=== PATIENT | male | born 1950 | race Caucasian/White ===

== ENCOUNTER 2018-07-14 05:52 | Day surgery (SDC) | payer MEDICARE ==
[~2018-07-14 05:52] MED LIST: XYLOCAINE 2% HCL 20 ML MDV ONE
[2018-07-14] MEDS ORDERED: DIPRIVAN 200 MG/20 ML IV ONE (05:53)
[2018-07-14] MEDS ORDERED: Lactated Ringers 1,000 ML IV SCH (06:00)
[2018-07-14] MEDS ORDERED: Lactated Ringers 1,000 ML IV ONE (06:18)
[2018-07-14 09:12] VITALS: BP 136/87; PULSE 69; O2SAT 99
--- NOTE | 2018-07-14 11:13 | OP ---
SURGERY DATE/TIME: 07/14/2018808 PREOPERATIVE DIAGNOSIS: Screening colonoscopy. POSTOPERATIVE DIAGNOSIS: Normal colon. PROCEDURE: Colonoscopy. SURGEON: Asa Garcia M.D. ANESTHESIA: MAC by Popeye Mullins CRNA. ESTIMATED BLOOD LOSS: None. SPECIMENS: None. DESCRIPTION OF PROCEDURE: After informed written consent was obtained, the patient was taken to the endoscopy suite. He underwent monitored anesthesia and digital rectal exam showed normal sphincter tone and no internal lesions. The scope was inserted into the rectum and sequentially the entire colonic mucosa was traversed. The level of cecum was reached and verified with direct visualization of the ileocecal valve. Upon withdrawal careful mucosal inspection revealed no gross abnormalities. Prep was noted to be fair. Prior to withdrawal retroflexion was performed and showed no internal lesions. The scope was removed and the patient was transferred to the recovery room in good condition.
== END 2018-07-14 09:24 | disposition home or self-care (01) ==
LOC: SDC 05:52
PROVIDERS: ATTEND Family Medicine
DX: Z12.11 Encounter for screening for malignant neoplasm of colon (principal)
CPT/HCPCS: J2704

== ENCOUNTER 2020-02-15 20:33 | Emergency (ER) | payer MEDICARE ==
--- NOTE | 2020-02-15 21:22 | ERPHSYRPT ---
- History of Present Illness Time Seen by Provider: 02/15/20 21:07 Source: patient Exam Limitations: no limitations Physician History: 69 years old male presented in the ER with a chief complaint of fall while getting up from a chair and is kitchen and hit his left forearm against the wall sharp edges getting laceration. There was bleeding initially but stopped after applying pressure. Patient is taking only Plavix but no other blood thinners. Pain with movements at rest and palpation around. Better with being still. Unsure about tetanus status. Not hit his head, no loss of consciousness. Also has mild bruise on the left knee where he hit the ground. Did not have injury anywhere else. Occurred: just prior to arrival Method of Injury: fell Severity of Pain-Max: mild Severity of Pain-Current: mild Extremities Pain Location: forearm: left (Laceration dorsal aspect) Modifying Factors: Improves With: movement Associated Symptoms: none Allergies/Adverse Reactions: No Known Drug Allergies Allergy (Verified 07/14/18 06:04) Home Medications: Atorvastatin Calcium [Lipitor] 40 mg PO QHS 07/11/18 [History] Bacillus Coagulans [Probiotic] 1 each PO DAILY 07/11/18 [History] Clopidogrel Bisulfate 75 mg [PLAVIX 75 MG Tablet] 75 mg PO DAILY 07/11/18 [History] Furosemide 20 mg [Lasix 20 mg] 20 mg PO DAILY 07/11/18 [History] Levetiracetam [Keppra] 750 mg PO BID 07/11/18 [History] Metoprolol Succinate [Toprol Xl] 50 mg PO BID 07/11/18 [History] Potassium Chloride [K-Dur] 10 meq PO DAILY 07/11/18 [History] Pyridoxine HCl (Vitamin B6) [B-6] 100 mg PO DAILY 07/11/18 [History] Travel Risk - International Travel Have you traveled outside of the country in past 3 weeks: No Have you or anyone close to you been diagnosed with or: No Do your reside in a community with a known COVID-19 case?: Yes If Yes where:: [facility] - Review of Systems Constitutional: No Symptoms Eyes: No Symptoms Ears, Nose, & Throat: No Symptoms Respiratory: No Symptoms Cardiac: No Symptoms Abdominal/Gastrointestinal: No Symptoms Genitourinary Symptoms: No Symptoms Musculoskeletal: Fall, Injury, Joint Pain Skin: Skin Lesions Neurological: No Symptoms Psychological: No Symptoms Endocrine: No Symptoms Hematologic/Lymphatic: No Symptoms Immunological/Allergic: No Symptoms - Past Medical History Pertinent Past Medical History: Yes Neurological History: Seizures ENT History: No Pertinent History Cardiac History: Coronary Artery Disease, High Cholesterol, Hypertension Respiratory History: No Pertinent History Endocrine Medical History: No Pertinent History Musculoskeletal History: No Pertinent History GI Medical History: No Pertinent History History: Other Psycho-Social History: No Pertinent History Male Reproductive Disorders: No Pertinent History Other Medical History: Hx of kidney problems, states last sz was "one to two yrs ago" - Past Surgical History Past Surgical History: Yes Neuro Surgical History: No Pertinent History Cardiac: Cardiac Catheterization Respiratory: No Pertinent History Gastrointestinal: No Pertinent History Genitourinary: No Pertinent History Musculoskeletal: No Pertinent History Male Surgical History: No Pertinent History Other Surgical History: Colonoscopy - Social History Smoking Status: Current every day smoker How long have you smoked: 50 years Exposure to second hand smoke: Yes Drug Use: none - Nursing Vital Signs Nursing Vital Signs: Initial Vital Signs Temperature 97.4 F 02/15/20 21:00 Pulse Rate 56 L 02/15/20 21:00 Respiratory Rate 18 02/15/20 21:00 Blood Pressure 116/66 02/15/20 21:00 O2 Sat by Pulse Oximetry 99 02/15/20 21:00 Pain Scale Pain Intensity 0 - Physical Exam General Appearance: no apparent distress, alert Eyes, Ears, Nose, Throat Exam: normal ENT inspection, TMs normal, pharynx normal Neck Exam: normal inspection, non-tender, supple, full range of motion Cardiovascular/Respiratory Exam: chest non-tender, normal breath sounds, regular rate/rhythm Abdominal Exam: non-tender, soft Back Exam: normal inspection Shoulder Exam: normal inspection, non-tender, no evidence of injury Elbow/Forearm Exam: normal ROM, pain, soft tissue tenderness, swelling (Jagged edges laceration left forearm dorsal aspect deep to fascia. Measured 9 cm x 3 cm T-shaped. No restricted movements at wrist and fingers.), No bone tenderness Hand Exam: normal inspection, non-tender, no evidence of injury Neuro/Tendon Exam: normal sensation, normal motor functions, normal tendon functions Mental Status Exam: alert, oriented x 3, cooperative Skin Exam: normal color, warm SpO2 Interpretation: normal SpO2: 99 O2 Delivery: Room Air Procedures - Laceration/Wound Repair Left Upper Dorsal Arm Wound Location: Left, lower arm Wound Length (cm): 9 Wound's Depth, Shape: irregular, flap Wound Explored: clean Irrigated: Yes Hibiclens Prep: Yes Anesthesia: 1% Lidocaine Volume Anesthetic (ccs): 7 Wound Debrided: minimal Wound Repaired With: sutures Suture Size/Type: 3-0, ethilon Number of Sutures: 11 Layer Closure?: Yes Sterile Dressing Applied?: Yes Splint Applied?: Yes Type of Splint Applied: posterior Ortho-Glass applied for stability Sling Applied?: Yes - Course Nursing assessment & vital signs reviewed: Yes Ordered Tests: Active Orders 24 hr Category Date Time Status Isolation, Initiate & Maintain Q4H Care 02/15/20 21:34 Active KNEE (3 VIEWS) Stat Exams 02/15/20 22:03 Taken Medication Summary Discontinued Medications Generic Name Dose Route Start Last Admin Trade Name Freq PRN Reason Stop Dose Admin Cephalexin HCl 500 mg 02/15/20 22:19 02/15/20 22:30 Keflex 500 Mg PO 02/15/20 22:20 500 mg STAT ONE Administration Cephalexin HCl Confirm 02/15/20 22:28 Keflex 500 Mg Administered 02/15/20 22:29 Dose 500 mg .ROUTE .STK-MED ONE Diphtheria/Tetanus/Acell Pertussis 0.5 ml 02/15/20 21:23 02/15/20 21:43 Adacel Vial IM 02/15/20 21:24 0.5 ml .ONCE ONE Administration Diphtheria/Tetanus/Acell Pertussis Confirm 02/15/20 21:42 Adacel Vial Administered 02/15/20 21:43 Dose 0.5 ml IM .STK-MED ONE - Progress Progress: improved, pain not gone completely, re-examined Progress Note: 02/15/20 22:20 Laceration is repaired. Patient is on Plavix and also has a thin skin with multiple bruising. Discussed with patient in detail about risk of cut through open wound and wound care follow-up is provided. I would also start him on Keflex. Recommended Tylenol take as needed. Posterior splint is applied to keep it stabilized. X-rays knee did not show any acute fracture. Patient has no loss of consciousness and remembers the whole sequence of event. Do not think needs any further work-up and is stable for discharge. Counseled pt/family regarding: diagnosis, need for follow-up, rad results - Departure Departure Disposition: Home Clinical Impression: Laceration of left forearm Qualifiers: Encounter type: initial encounter Qualified Code(s): S51.812A - Laceration without foreign body of left forearm, initial encounter Condition: Stable Critical Care Time: No Referrals: LAUREEN FRIEDMAN [Primary Care Provider] - Instructions: Wound Care (DC), Laceration Repair With Stitches (DC) Additional Instructions: Follow-up with primary care and wound care clinic for reevaluation. Take Tylenol as needed. Continue with antibiotics. Return to ER for increasing swelling redness discharge fever chills etc. Prescriptions: Cephalexin Mh 500 mg [Keflex 500 mg] 500 mg PO TID #21 capsule
[2020-02-15] MEDS ORDERED: Adacel Vial IM ONE ×2 (21:23→21:42)
[2020-02-15] MEDS ORDERED: KEFLEX 500 MG PO ONE (22:19)
[2020-02-15 22:25] VITALS: O2SAT 99
[2020-02-15] MEDS ORDERED: KEFLEX 500 MG ONE (22:28)
[2020-02-15 23:00] VITALS: BP 118/74; PULSE 60
--- NOTE | 2020-02-16 08:49 | XRAY ---
Indication: Pain following fall. Comparison: None 3 view left knee demonstrates anterior soft tissue swelling, minimal medial joint space narrowing, scattered vascular calcifications, and partially visualized distal superficial femoral artery stent graft. No other bony, articular, or soft tissue abnormalities.
== END 2020-02-15 23:00 | disposition home or self-care (01) ==
LOC: ED 20:33
DX: S51.812A Laceration without foreign body of left forearm, initial encounter (principal); S80.02XA Contusion of left knee, initial encounter; W22.01XA Walked into wall, initial encounter; Y93.89 Activity, other specified; Y92.000 Kitchen of unspecified non-institutional (private) residence as the place of occurrence of the external cause; I10 Essential (primary) hypertension; E78.00 Pure hypercholesterolemia, unspecified; I25.10 Atherosclerotic heart disease of native coronary artery without angina pectoris; Z79.899 Other long term (current) drug therapy
CPT/HCPCS: 12002; 73562; 90471; 90715; 99284; A4570; A9270-GY

== ENCOUNTER 2020-03-20 12:16 | Observation (INO) | payer MEDICARE ==
[2020-03-20] MEDS ORDERED: Zofran 4 MG/2 ML VIAL IV ONE (12:21)
--- NOTE | 2020-03-20 12:21 | ERPHSYRPT ---
- History of Present Illness Time Seen by Provider: 03/20/20 12:21 Source: patient, family Exam Limitations: clinical condition Physician History: This is a 69-year-old white male who has chronic alcohol problems and presents with decreased appetite, frequent falls and worsening confusion. The patient states that his last alcoholic drink was approximately 1 week ago. His daughter states that it is been at least 5 days. Patient's primary care provider is Darshana Hawkins who is a nurse practitioner. Dr. Bentley, Darshana Hawkins overseeing physician, called the emergency department today. Darshana Hawkins nurse practitioner interviewed Estuardo Zamora on 03/19/2020. Are made for the patient to be admitted here but there are no beds available. Attempt was made to transfer or admit the patient to [facility]. However, they were unable to admit him there because of some social reasons involving the patient's son who at times becomes angry and agitated. In the last year the patient underwent an upper endoscopy and a colonoscopy. This was performed by Dr. Devlin at [facility]. 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 Patient is on Plavix. Patient is on some antiseizure medications which the seizures were induced by chronic alcohol use. Patient denies nausea vomiting and diarrhea. Patient currently denies chest pain or abdominal pain. Patient's daughter, who is the power of compliance attorney, states that the patient can not care for himself any longer. He is unable to even walk a few steps without falling. Patient's rotary drier operator is Dr. MADDEN of [facility]. Timing/Duration: gradual onset, other (Fronek recurrent falls.) Severity: moderate Associated Symptoms: loss of appetite, syncope, weakness Allergies/Adverse Reactions: No Known Drug Allergies Allergy (Verified 07/14/18 06:04) Home Medications: Atorvastatin Calcium [Lipitor] 40 mg PO QHS 07/11/18 [History] Bacillus Coagulans [Probiotic] 1 each PO DAILY 07/11/18 [History] Clopidogrel Bisulfate 75 mg [PLAVIX 75 MG Tablet] 75 mg PO DAILY 07/11/18 [History] Furosemide 20 mg [Lasix 20 mg] 20 mg PO DAILY 07/11/18 [History] Levetiracetam [Keppra] 750 mg PO BID 07/11/18 [History] Metoprolol Succinate [Toprol Xl] 50 mg PO BID 07/11/18 [History] Potassium Chloride [K-Dur] 10 meq PO DAILY 07/11/18 [History] Pyridoxine HCl (Vitamin B6) [B-6] 100 mg PO DAILY 07/11/18 [History] Hx Tetanus, Diphtheria Vaccination/Date Given: No Hx Influenza Vaccination/Date Given: Yes Hx Pneumococcal Vaccination/Date Given: No Travel Risk - International Travel Have you traveled outside of the country in past 3 weeks: No Have you or anyone close to you been diagnosed with or: No Do your reside in a community with a known COVID-19 case?: Yes If Yes where:: [facility] - Coronavirus Screening Has patient experienced Coronavirus symptoms: No - Review of Systems Constitutional: Weakness Eyes: No Symptoms Ears, Nose, & Throat: No Symptoms Respiratory: No Symptoms Cardiac: No Symptoms Abdominal/Gastrointestinal: No Symptoms Genitourinary Symptoms: No Symptoms Musculoskeletal: Fall (Requip) Skin: Other (And relies ecchymosis) Neurological: Other (Fusion weakness and inability to ambulate normally frequent falls) Psychological: Alcohol Abuse Endocrine: No Symptoms Hematologic/Lymphatic: No Symptoms Immunological/Allergic: No Symptoms All Other Systems: Reviewed and Negative - Past Medical History Pertinent Past Medical History: Yes Neurological History: Seizures ENT History: No Pertinent History Cardiac History: Coronary Artery Disease, High Cholesterol, Hypertension Respiratory History: No Pertinent History Endocrine Medical History: No Pertinent History Musculoskeletal History: No Pertinent History GI Medical History: No Pertinent History History: Other Psycho-Social History: No Pertinent History Male Reproductive Disorders: No Pertinent History Other Medical History: Hx of kidney problems, states last sz was "one to two yrs ago" - Past Surgical History Past Surgical History: Yes Neuro Surgical History: No Pertinent History Cardiac: Cardiac Catheterization Respiratory: No Pertinent History Gastrointestinal: No Pertinent History Genitourinary: No Pertinent History Musculoskeletal: No Pertinent History Male Surgical History: No Pertinent History Other Surgical History: Colonoscopy - Social History Smoking Status: Current every day smoker How long have you smoked: 50 years Exposure to second hand smoke: Yes Drug Use: none Patient Lives Alone: Yes - Nursing Vital Signs Nursing Vital Signs: Initial Vital Signs Temperature 99.2 F 03/20/20 12:28 Pulse Rate 65 03/20/20 12:28 Respiratory Rate 24 03/20/20 12:28 Blood Pressure 91/59 03/20/20 12:28 O2 Sat by Pulse Oximetry 99 03/20/20 12:28 Pain Scale Pain Intensity 6 - Physical Exam General Appearance: no apparent distress, alert Eye Exam: PERRL/EOMI, eyes nml inspection Ears, Nose, Throat Exam: normal ENT inspection, moist mucous membranes Neck Exam: normal inspection, non-tender, supple, full range of motion Respiratory Exam: normal breath sounds, airway intact, wheezing (Mild left lower lung field), No chest tenderness, No respiratory distress Cardiovascular Exam: regular rate/rhythm, normal heart sounds, normal peripheral pulses Gastrointestinal/Abdomen Exam: soft, normal bowel sounds, No tenderness Rectal Exam: not done Back Exam: normal inspection, normal range of motion, CVA tenderness Extremity Exam: normal range of motion, pelvis stable, pedal edema Neurologic Exam: alert, cooperative, ship mate II-XII nml as tested Skin Exam: ecchymosis (Several areas of ecchymosis on his body. This includes the anterior and posterior torso, upper and lower extremities. There are several eschars where there is been skin tears and healing on present.) Lymphatic Exam: No adenopathy SpO2 Interpretation: normal O2 Delivery: Room Air - Course Nursing assessment & vital signs reviewed: Yes EKG Interpreted by Me: RATE (66), Sinus Rhythm, NORMAL AXIS, NORMAL INTERVALS, NORMAL QRS, Other (Comparison EKG. No acute ischemic changes noted) Ordered Tests: Active Orders 24 hr Category Date Time Status Clean Catch Urine Specimen STAT Care 03/20/20 12:21 Active EKG-ER Only STAT Care 03/20/20 12:21 Active IV Insertion STAT Care 03/20/20 12:21 Active Pulse Oximetry (ED) STAT Care 03/20/20 12:21 Active CHEST 1 VIEW (PORTABLE) Stat Exams 03/20/20 12:30 Completed HEAD WITHOUT CONTRAST [CT] Stat Exams 03/20/20 12:47 Completed AMYLASE Stat Lab 03/20/20 13:08 Completed CBC W DIFF Stat Lab 03/20/20 13:08 Completed CMP Stat Lab 03/20/20 13:08 Completed ETHYL ALCOHOL Stat Lab 03/20/20 13:08 Completed LIPASE Stat Lab 03/20/20 13:08 Completed Lactic Acid Stat Lab 03/20/20 13:00 Completed MAGNESIUM Stat Lab 03/20/20 13:08 Completed PROTIME WITH INR Stat Lab 03/20/20 13:08 Completed TROPONIN Q3H Lab 03/20/20 13:08 Completed TROPONIN Q3H Lab 03/20/20 15:30 Ordered TROPONIN Q3H Lab 03/20/20 18:30 Ordered TROPONIN Q3H Lab 03/20/20 21:30 Ordered TROPONIN Q3H Lab 03/21/20 00:30 Ordered UA W/RFX UR CULTURE Stat Lab 03/20/20 14:41 Ordered Urine Triage Profile Stat Lab 03/20/20 14:41 Ordered Medication Summary Generic Name Dose Route Start Last Admin Trade Name Freq PRN Reason Stop Dose Admin Thiamine HCl 100 mg/ 1,011.2 mls @ 250 mls/hr 03/20/20 12:45 03/20/20 14:29 Multivitamins/Minerals 10 ml/ IV 03/20/20 16:44 250 mls/hr Folic Acid 1 mg/ Sodium .Q4H3M LIT Administration Chloride Discontinued Medications Generic Name Dose Route Start Last Admin Trade Name Freq PRN Reason Stop Dose Admin Famotidine 20 mg 03/20/20 12:23 03/20/20 14:29 Pepcid 20 Mg Vial IV 03/20/20 12:24 20 mg STAT ONE Administration Famotidine Confirm 03/20/20 14:27 Pepcid 20 Mg Vial Administered 03/20/20 14:28 Dose 20 mg IV .STK-MED ONE Ondansetron HCl 4 mg 03/20/20 12:21 03/20/20 14:29 Zofran 4 Mg/2 Ml Vial IV 03/20/20 12:22 4 mg STAT ONE Administration Ondansetron HCl Confirm 03/20/20 14:27 Zofran 4 Mg/2 Ml Vial Administered 03/20/20 14:28 Dose 4 mg .ROUTE .STK-MED ONE Lab/Rad Data: Laboratory Result Diagrams 03/20/20 13:08 03/20/20 13:08 Laboratory Results 03/20/20 03/20/20 03/20/20 Range/Units 13:08 13:08 13:08 WBC (4.0-10.5) K/mm3 RBC (4.1-5.6) M/mm3 Hgb (12.5-18.0) gm/dl Hct (42-50) % MCV (78-100) fl MCH (26-32) pg MCHC (32-36) g/dl RDW (11.5-14.0) % Plt Count (150-450) K/mm3 MPV (7.5-11.0) fl Gran % (36.0-66.0) % Eos # (Auto) (0-0.5) Absolute Lymphs (auto) (1.0-4.6) Absolute Monos (auto) (0.0-1.3) Lymphocytes % (24.0-44.0) % Monocytes % (0.0-12.0) % Eosinophils % (0.00-5.0) % Basophils % (0.0-0.4) % Absolute Granulocytes (1.4-6.9) Basophils # (0-0.4) PT 11.8 (8.83-12.87) SECONDS INR 1.04 (0.8-3.0) Sodium (137-145) mmol/L Potassium (3.5-5.1) mmol/L Chloride (98-107) mmol/L Carbon Dioxide (22-30) mmol/L Anion Gap (5-15) MEQ/L BUN (9-20) mg/dL Creatinine (0.66-1.25) mg/dL Estimated GFR ML/MIN Glucose (74-106) mg/dL Lactic Acid (0.4-2.0) Calcium (8.4-10.2) mg/dL Magnesium 1.9 (1.6-2.3) mg/dL Total Bilirubin (0.2-1.3) mg/dL AST (17-59) U/L ALT (0-50) U/L Alkaline Phosphatase (38-126) U/L Ammonia (9-30) umol/L Troponin I 0.036 H* (0.000-0.034) ng/mL Serum Total Protein (6.3-8.2) g/dL Albumin (3.5-5.0) g/dL Amylase 83 (30-110) U/L Lipase 484 H (23-300) U/L Ethyl Alcohol (0-10) mg/dL 03/20/20 03/20/20 03/20/20 Range/Units 13:08 13:08 13:00 WBC 8.2 (4.0-10.5) K/mm3 RBC 2.55 L (4.1-5.6) M/mm3 Hgb 9.2 L (12.5-18.0) gm/dl Hct 29.3 L (42-50) % MCV 114.9 H (78-100) fl MCH 36.1 H (26-32) pg MCHC 31.4 L (32-36) g/dl RDW 14.4 H (11.5-14.0) % Plt Count 153 (150-450) K/mm3 MPV 10.0 (7.5-11.0) fl Gran % 70.1 H (36.0-66.0) % Eos # (Auto) 0.01 (0-0.5) Absolute Lymphs (auto) 1.04 (1.0-4.6) Absolute Monos (auto) 1.36 H (0.0-1.3) Lymphocytes % 12.7 L (24.0-44.0) % Monocytes % 16.6 H (0.0-12.0) % Eosinophils % 0.1 (0.00-5.0) % Basophils % 0.5 (0.0-0.4) % Absolute Granulocytes 5.74 (1.4-6.9) Basophils # 0.04 (0-0.4) PT (8.83-12.87) SECONDS INR (0.8-3.0) Sodium 140 (137-145) mmol/L Potassium 5.5 H (3.5-5.1) mmol/L Chloride 108 H (98-107) mmol/L Carbon Dioxide 21 L (22-30) mmol/L Anion Gap 16.6 H (5-15) MEQ/L BUN 52 H (9-20) mg/dL Creatinine 2.60 H (0.66-1.25) mg/dL Estimated GFR 26.3 ML/MIN Glucose 139 H (74-106) mg/dL Lactic Acid (0.4-2.0) Calcium 9.6 (8.4-10.2) mg/dL Magnesium (1.6-2.3) mg/dL Total Bilirubin 0.60 (0.2-1.3) mg/dL AST 114 H (17-59) U/L ALT 46 (0-50) U/L Alkaline Phosphatase 95 (38-126) U/L Ammonia < 9 L (9-30) umol/L Troponin I (0.000-0.034) ng/mL Serum Total Protein 8.2 (6.3-8.2) g/dL Albumin 4.1 (3.5-5.0) g/dL Amylase (30-110) U/L Lipase (23-300) U/L Ethyl Alcohol < 10 (0-10) mg/dL 03/20/20 Range/Units 13:00 WBC (4.0-10.5) K/mm3 RBC (4.1-5.6) M/mm3 Hgb (12.5-18.0) gm/dl Hct (42-50) % MCV (78-100) fl MCH (26-32) pg MCHC (32-36) g/dl RDW (11.5-14.0) % Plt Count (150-450) K/mm3 MPV (7.5-11.0) fl Gran % (36.0-66.0) % Eos # (Auto) (0-0.5) Absolute Lymphs (auto) (1.0-4.6) Absolute Monos (auto) (0.0-1.3) Lymphocytes % (24.0-44.0) % Monocytes % (0.0-12.0) % Eosinophils % (0.00-5.0) % Basophils % (0.0-0.4) % Absolute Granulocytes (1.4-6.9) Basophils # (0-0.4) PT (8.83-12.87) SECONDS INR (0.8-3.0) Sodium (137-145) mmol/L Potassium (3.5-5.1) mmol/L Chloride (98-107) mmol/L Carbon Dioxide (22-30) mmol/L Anion Gap (5-15) MEQ/L BUN (9-20) mg/dL Creatinine (0.66-1.25) mg/dL Estimated GFR ML/MIN Glucose (74-106) mg/dL Lactic Acid 1.8 (0.4-2.0) Calcium (8.4-10.2) mg/dL Magnesium (1.6-2.3) mg/dL Total Bilirubin (0.2-1.3) mg/dL AST (17-59) U/L ALT (0-50) U/L Alkaline Phosphatase (38-126) U/L Ammonia (9-30) umol/L Troponin I (0.000-0.034) ng/mL Serum Total Protein (6.3-8.2) g/dL Albumin (3.5-5.0) g/dL Amylase (30-110) U/L Lipase (23-300) U/L Ethyl Alcohol (0-10) mg/dL - Progress Progress Note: 03/20/20 14:15 I reviewed the patient's history, condition, lab and CAT scan results with Dr. Bentley. She felt that the patient possibly could stay at this facility but that the final decision will be up to Dr. Whyte. We will give Dr. Whyte a phone call. 03/20/20 14:16 CAT scan of the head without contrast reveals atrophy with degenerative micro- ischemic changes. There is no acute intracranial abnormalities. 03/20/20 14:47 I reviewed the patient's history, condition, lab and CAT scan results with Dr. Whyte. She felt the patient could possibly stay at this facility. She wants me to contact Dr. MADDEN patient's rotary drier operator. If he states the patient can stay here than the patient will stay here at this hospital. Dr. Whyte would like us to make sure that the family is aware that if there is a cardiac issue we would attempt to contact the rotary drier operator for consultation but the patient may need to be transferred the event the rotary drier operator will not come to this facility to evaluate the patient in consultation. We will consult general surgery for evaluation for endoscopy. 03/20/20 15:15 I spoke with the patient's rotary drier operator, Dr. Madden. I reviewed the patient's history, condition, laboratory results and CAT scan results. He feels the patient may safely stay at [facility]. He states to have Dr. Whyte contact him if there is any questions or concerns. Discussed with : Cheyenne Balderrama Counseled pt/family regarding: lab results, diagnosis, need for follow-up, rad results - Departure Clinical Impression: Weakness, Lack of appetite, Alcoholism /alcohol abuse, Acute renal insufficiency, Elevated troponin, Confusion Condition: Fair Critical Care Time: No Referrals: [facility] [NON-STAFF PHY W/O PRIVILEGES] -
[2020-03-20] MEDS ORDERED: Pepcid 20 MG VIAL IV ONE ×2 (12:23→14:27)
[2020-03-20] MEDS ORDERED: THIAMINE 200 MG/2 ML*** 100 MG, Vitamins For Infusion 10 ML INJECTION*** 10 ML, FOLNATE... IV SCH ×4 (12:45)
--- NOTE | 2020-03-20 13:00 | XRAY ---
Indication: Wheezing. Comparison: None Portable chest demonstrates patchy left mid to lower lung infiltrate/atelectasis and a few incidental tiny calcific granulomas. Heart is not enlarged with aorta valve replacement. Bony thorax with mild osteopenia, degenerative changes, and old right clavicle fracture.
[2020-03-20 13:12] LABS: Absolute Neutrophil Ct (ANC) 5.74 (1.4-6.9); BASOPHIL % 0.5 % (0.0-0.4); Basophil (Absolute #) 0.04 (0-0.4); Eosinophil % 0.1 % (0.00-5.0); Eosinophil (Absolute #) 0.01 (0-0.5); Hematocrit 29.3 % (42-50); Hemoglobin 9.2 gm/dl (12.5-18.0); Lymphocyte (Absolute #) 1.04 (1.0-4.6); Lymphocytes % 12.7 % (24.0-44.0); Mean Cell Volume 114.9 fl (78-100); Mean Corpuscular Hemoglobin 36.1 pg (26-32); Mean Corpuscular Hgb Concent. 31.4 g/dl (32-36); Monocyte (Absolute #) 1.36 (0.0-1.3); Monocytes % 16.6 % (0.0-12.0); Neutrophil % 70.1 % (36.0-66.0); Platelet Count 153 K/mm3 (150-450); Red Blood Count 2.55 M/mm3 (4.1-5.6); Red Cell Distribution Width 14.4 % (11.5-14.0); White Blood Count 8.2 K/mm3 (4.0-10.5)
[2020-03-20 13:20] LABS: INR 1.04 (0.8-3.0); PROTIME 11.8 SECONDS (8.83-12.87)
[2020-03-20 13:26] LABS: ALBUMIN 4.1 g/dL (3.5-5.0); ALKALINE PHOSPHATASE 95 U/L (38-126); ANION GAP 16.6 MEQ/L (5-15); BLOOD UREA NITROGEN 52 mg/dL (9-20); CHLORIDE 108 mmol/L (98-107); Calcium 9.6 mg/dL (8.4-10.2); Carbon Dioxide 21 mmol/L (22-30); Glucose 139 mg/dL (74-106); MAGNESIUM 1.9 mg/dL (1.6-2.3); Potassium 5.5 mmol/L (3.5-5.1); SGOT/AST 114 U/L (17-59); SGPT/ALT 46 U/L (0-50); SODIUM 140 mmol/L (137-145); Total Protein 8.2 g/dL (6.3-8.2)
[2020-03-20 13:28] LABS: ETHYL ALCOHOL < 10 mg/dL (0-10)
--- NOTE | 2020-03-20 13:54 | XRAY ---
Indication: Confusion following falls. Multiple contiguous axial images obtained through the head without contrast. Comparison: None Age-appropriate global atrophy, mild periventricular degenerative micro-ischemia bilaterally, and moderate-sized old left parietal infarct. No acute intracranial hemorrhage, hydrocephalus, or mass effect. Fourth ventricle is midline. Bony calvarium intact. Left maxillary sinus demonstrates minimally mucosal thickening. Remaining paranasal sinuses and mastoid air cells are clear. Impression: 1. Atrophy, degenerative micro-ischemia, and old left parietal lobe infarct. 2. No acute intracranial abnormalities. 3. Minimal left maxillary sinus disease.
[2020-03-20] MEDS ORDERED: Zofran 4 MG/2 ML VIAL ONE (14:27)
[2020-03-20 16:00] LABS: Appearance TURBID (CLEAR); Bacteria MODERATE /HPF (NEGATIVE); Bilirubin NEGATIVE (NEGATIVE); Blood MODERATE Ery/ul (0-5); Glucose NEGATIVE (NEGATIVE); Ketones NEGATIVE (NEGATIVE); Leukocyte Esterase LARGE (NEGATIVE); Mucus SLIGHT /HPF (NEGATIVE); Nitrite NEGATIVE (NEGATIVE); Non-Squamous Epithelial Cells RARE /HPF (FEW); Protein,Urine Dip 100 (Negative); Specific Gravity 1.012 (1.005-1.025); Urobilinogen NEGATIVE mg/dL (0-1); WBC >100 /HPF (0-5)
[2020-03-20 16:12] LABS: Amphetamine,Urine NEGATIVE (NEGATIVE); Barbiturate,Urine NEGATIVE (NEGATIVE); Benzodiazepine,Urine NEGATIVE (NEGATIVE); Cocaine,Urine NEGATIVE (NEGATIVE); Methadone,Urine NEGATIVE (NEGATIVE); Opiate,Urine NEGATIVE (NEGATIVE); PCP,Urine NEGATIVE (NEGATIVE); THC,Urine NEGATIVE (NEGATIVE)
[2020-03-20] MEDS ORDERED: Zofran 4 MG/2 ML VIAL IV PRN (16:18)
[2020-03-20] MEDS ORDERED: TYLENOL 325 MG PO PRN (16:18)
[2020-03-20] MEDS ORDERED: Ativan 2 MG/1 ML VIAL IV PRN (16:49)
[2020-03-20] MEDS ORDERED: Nicoderm CQ 21 MG TD PRN (17:14)
[2020-03-20] MEDS ORDERED: Nicoderm CQ 21 MG TD SCH (18:45)
[2020-03-20] MEDS: Sodium Chloride 0.9% 1000 ML 1,000 ML IV SCH (19:17)
[2020-03-20] MEDS ORDERED: NON-FORMULARY ITEM (Atorvastatin Calcium [Lipitor] 40 MG) PO SCH (22:00)
[2020-03-20] MEDS: Keppra 250 MG PO SCH (22:00)
[2020-03-20] MEDS ORDERED: NON-FORMULARY ITEM (Levetiracetam [Keppra] 750 MG) PO SCH (22:00)
[2020-03-20] MEDS: PROTONIX 40 MG IV IV SCH (22:00)
[2020-03-20] MEDS ORDERED: ZOCOR 20MG PO SCH (22:00)
[2020-03-21 05:46] LABS: Absolute Neutrophil Ct (ANC) 3.76 (1.4-6.9); BASOPHIL % 0.7 % (0.0-0.4); Basophil (Absolute #) 0.05 (0-0.4); Eosinophil % 0.3 % (0.00-5.0); Eosinophil (Absolute #) 0.02 (0-0.5); Lymphocytes % 23.6 % (24.0-44.0); Mean Cell Volume 116.3 fl (78-100); Mean Corpuscular Hemoglobin 35.8 pg (26-32); Mean Corpuscular Hgb Concent. 30.8 g/dl (32-36); Mean Platelet Volume 9.9 fl (7.5-11.0); Monocyte (Absolute #) 1.36 (0.0-1.3); Neutrophil % 55.4 % (36.0-66.0); Platelet Count 123 K/mm3 (150-450); Red Blood Count 2.15 M/mm3 (4.1-5.6); Red Cell Distribution Width 14.3 % (11.5-14.0); White Blood Count 6.8 K/mm3 (4.0-10.5)
[2020-03-21 05:57] LABS: Hemoglobin 7.7 gm/dl (12.5-18.0)
[2020-03-21 06:31] LABS: ALBUMIN 3.1 g/dL (3.5-5.0); ANION GAP 10.1 MEQ/L (5-15); BILIRUBIN,TOTAL 0.4 mg/dL (0.2-1.3); Calcium 8.5 mg/dL (8.4-10.2); Creatinine 1 2.25 mg/dL (0.66-1.25); Potassium 5.1 mmol/L (3.5-5.1); Total Protein 6.7 g/dL (6.3-8.2)
[2020-03-21] MEDS ORDERED: Nicoderm CQ 21 MG TD PRN (07:00)
[2020-03-21] MEDS: Sodium Chloride 0.9% 1000 ML 1,000 ML IV SCH (07:36)
[2020-03-21] MEDS: Vitamin B-6 (Pyridoxine) 100 MG PO SCH (08:56)
[2020-03-21] MEDS: Keppra 250 MG PO SCH ×2 (08:56→23:34)
[2020-03-21] MEDS: Acidophilus TABLET PO SCH (08:57)
[2020-03-21] MEDS: LASIX 20 MG PO SCH (08:57)
[2020-03-21] MEDS ORDERED: NON-FORMULARY ITEM (Bacillus Coagulans [Probiotic] 1 EACH) PO SCH (10:00)
[2020-03-21] MEDS ORDERED: PYRIDOXINE HCL 100 MG PO SCH (10:00)
[2020-03-21 10:39] LABS: Appearance CLOUDY (CLEAR); Bacteria MODERATE /HPF (NEGATIVE); Bilirubin NEGATIVE (NEGATIVE); Blood SMALL Ery/ul (0-5); Glucose NEGATIVE (NEGATIVE); Ketones NEGATIVE (NEGATIVE); Leukocyte Esterase LARGE (NEGATIVE); Nitrite NEGATIVE (NEGATIVE); Protein,Urine Dip NEGATIVE (Negative); Specific Gravity 1.009 (1.005-1.025); Urobilinogen NEGATIVE mg/dL (0-1); WBC >100 /HPF (0-5)
--- NOTE | 2020-03-21 11:31 | XRAY ---
Indication: Acute kidney failure. Two-dimensional renal sonogram performed. Comparison: None Both kidneys normal in reniform shape with normal color perfusion. Right kidney measures 12.0 x 5.1 x 6.3 cm and the left measures 10.8 x 3.8 x 5.1 cm. Right kidney demonstrates 2 cortical cysts, largest measuring 2.2 cm lower pole. No other solid/cystic renal mass, hydronephrosis, or perinephric fluid. Cortical medullary differentiation preserved without cortical thinning. Images of the normally distended urinary bladder demonstrates minimal hypoechogenic debris layering in the dependent portion. No focal bladder wall thickening or mass. Ureteral jets not seen within the allotted exam time. Impression: 1. Right renal cysts. 2. Minimal urinary bladder intraluminal debris. 3. Remaining renal sonogram is negative.
[2020-03-21] MEDS: ROCEPHIN 1 Gm-D5w 50 ml Bag** 1 G/50 ML IVPB IV SCH (12:41)
[2020-03-21] MEDS: THIAMINE 200 MG/2 ML IV SCH (12:43)
[2020-03-21] MEDS: Sodium Bicarbonate 50 MEQ/50 ML VIAL*** 150 MEQ in Dextrose 5%/Water IV Soln. 1000 ML 1... IV SCH (12:48)
--- NOTE | 2020-03-21 12:55 | CONS ---
CONSULT DATE: 03/21/2020 REASON FOR CONSULT: 1) Evaluation of increase in BUN and creatinine. 2) High CPK level. I thank Dr. Bentley for her kind referral. HISTORY: Estuardo Zamora is a very pleasant 69 year-old gentleman who has history of chronic alcoholism, dyslipidemia, hypertension, possible chronic kidney disease. Baseline creatinine is unclear at this time. Recently diagnosed with cirrhosis. The patient was admitted for recurrent falls. Creatinine was noted to be 2.6 mg% and as a result renal consultation was called. The patient was not on any nonsteroidals. There is no gross vomiting or diarrhea. CPK levels were high. Recently his serum bicarbonate levels were also noted to be low. He denies any voiding difficulty but blood cultures in the hospital were positive for gram-negative organisms. Sensitivity and identification were pending at the time of my evaluation. The patient's vital signs showed low grade fever. REVIEW OF SYSTEMS: All systems were reviewed. The patient stated he was voiding okay, denies any suprapubic pain, no hematuria, questionable melena. Fall as mentioned above. Prior history of old stroke and is on Plavix. No reported fever in the hospital. Denies any chest pain, abdominal pain, and ascites at this time. No blurry vision. All systems were reviewed in detail and pertinent mentioned here and in history of present illness and the rest were negative. PAST MEDICAL HISTORY: Possible chronic kidney disease, baseline creatinine unknown. Dyslipidemia. Seizure disorder. Chronic alcoholism. Essential hypertension. Coronary artery disease. History of CVA in the past. Questionable cirrhosis. Cervical radioculopathy. GI hemorrhage. PAST SURGICAL HISTORY: Denies any major surgeries in the recent past. MEDICATIONS: Home medications included: Atorvastatin, clopidogrel, Lasix, lisinopril, metoprolol, potassium. In hospital medications were reviewed, details of doses were noted. ALLERGIES: NKDA. SOCIAL HISTORY: History of alcoholism is present. He drinks one to two pints a day. FAMILY HISTORY: No history of renal problems in the family. PHYSICAL EXAMINATION: Reveals a gentleman upright in bed in no distress. Temperature max was 99F, pulse rate 81/minute, respiratory rate 20/minute, blood pressure 108/55, initially was borderline hypertensive. HEENT: Normocephalic, atraumatic, slightly pale conjunctivae, nonicteric sclera. NECK: Supple. JVD is present. CHEST: Clear, no distress. CVS: S1, S2 normal. No rub or gallop. ABDOMEN: Soft, nontender. No organomegaly. EXTREMITIES: No cyanosis, clubbing. Trace edema bilaterally. SKIN: No skin rash. Skin turgor normal. MUSCULOSKELETAL: No acute joint swelling, redness, nontender. NEUROLOGIC: The patient is alert, awake, oriented x3. LAB DATA AND TESTS: Labs were reviewed. ASSESSMENT: 1) ACUTE KIDNEY INJURY ON CHRONIC KIDNEY DISEASE: Etiology of acute kidney injury could be multifactorial. The patient was relatively hypotensive plus excessive alcohol intake can cause osmolar injury to the tubules plus possibility of urine retention arises given his urinary tract infection, plus component of rhabdomyolysis because of fall causing myoglobin-induced injury cannot be completely ruled out though unlikely at this level of CPK. Underlying chronic kidney disease may be present because of hypertension, atherosclerotic disease and chronic alcoholism. We will anchor a Felix catheter, continue IV fluids and do forced diuresis later this evening. In the meantime I agree holding lisinopril in an acute scenario as the patient was also hypotensive. 2) HYPERKALEMIA: Improving. This may be because of potassium supplementation plus acute kidney injury. Hold lisinopril, hold potassium supplementation. 3) LOW BICARBONATE LEVEL. This could be because of acute kidney injury, plus hypertension, plus infection. Bicarb drip has been started cautiously. Underlying respiratory alkalosis because of liver-related/alcohol-related issues cannot be ruled out. 4) RHABDOMYOLYSIS: Borderline high CPK because of fall. Bicarb drip may help. Continue to monitor the trend of CPK. 5) URINARY TRACT INFECTION: Possibly because of urine retention. [place] Felix. Follow up the sensitivity and identification. Start ceftriaxone. I will closely follow up the patient, correct underlying chronic kidney disease. All questions were answered.
--- NOTE | 2020-03-21 13:38 | CONS ---
CONSULT DATE: 03/21/2020 REASON FOR CONSULT: GI bleed. HISTORY: A 69 year-old on the floor with hemoglobin of 7 acutely. About one year ago he had an EGD and had a large ulcer. He presents being weak and run down. He has not had a recent colonoscopy, greater than five years and the EGD was over a year ago. PHYSICAL EXAMINATION: On physical examination he does bruise quite easily. ABDOMEN: Moderately distended. It is not tender. There is no palpable mass. There is no suggestion of external varices. IMPRESSION: Significant GI bleed. PLAN: Bowel prep followed by EGD and colonoscopy, this will be either scheduled tomorrow or Wednesday.
[2020-03-21] MEDS ORDERED: Golytely Solution 4000 ML PO ONE (14:00)
--- NOTE | 2020-03-21 16:12 | PCM.NOTE ---
Date and Time: 03/21/20 1608 Subjective Assessment: Patient reports that he feels tired and aches all over and does not feel much better than yesterday. - Review of Systems Constitutional: Fatigue Respiratory: No Symptoms Cardiac: No Symptoms Abdominal/Gastrointestinal: No Symptoms Musculoskeletal: Arthralgias Skin: Other (brusies; patient reports stitches taken out this AM) Objective Exam General Appearance: no apparent distress, alert Neurologic Exam: cooperative Skin Exam: normal color, warm, ecchymosis Wound Assessment: Skin/Wound Assessment Wound/Incision Assessment Start: 03/20/20 18: 34 Text: Status: Active Freq: Q8H Protocol: Document 03/21/20 12:00 DON (Rec: 03/21/20 12:21 [id number]) Wound/Incision Assessment Left Lower Arm Wound Assessment Shift Assessment Wound Type Skin Tear Wound Stage Non Pressure Wound Dressing Status Dry & Intact Drainage Amount None Drainage Odor None/Absent General Appearance Well Approximated Sutures Intact Primary Dressing Non-Adherent Gauze Pads Comment Stockinette holding dressing in place Wound Photo Photo Taken No Respiratory Exam: normal breath sounds, lungs clear, No crackles/rales, No rhonchi, No wheezing Cardiovascular Exam: regular rate/rhythm, normal heart sounds, No murmur, No friction rub, No gallop Gastrointestinal/Abdomen Exam: soft, normal bowel sounds, No tenderness, No distention, No mass Extremity Exam: other (+1 edema bilat) OBJECTIVE DATA Vital Signs: Vital Signs - 24 hr Temp Pulse Resp BP Pulse Ox 03/21/20 11:54 98.9 F 75 18 112/56 95 03/21/20 08:00 98.1 F 70 18 113/56 97 03/21/20 05:51 97 03/21/20 04:16 98.7 F 88 20 115/64 96 03/21/20 00:15 99.0 F 81 20 108/55 97 03/20/20 20:10 96 03/20/20 20:03 99.0 F 71 20 100/51 97 03/20/20 16:50 94 L 03/20/20 16:16 99.0 F 70 20 108/65 98 Pain Assessment - Last Documented Pain Intensity 0 Pain Scale Used 0-10 Pain Scale Intake and Output: Intake & Output 03/19/20 03/20/20 03/21/20 03/22/20 06:59 06:59 06:59 06:59 Intake Total 3132 8150 Output Total 500 200 Balance 1376 1260 Weight 104 kg Lab Results: Lab Results-Last 24 Hours 03/20/20 03/20/20 03/20/20 Range/Units 14:41 16:50 16:50 WBC (4.0-10.5) K/mm3 RBC (4.1-5.6) M/mm3 Hgb (12.5-18.0) gm/dl Hct (42-50) % MCV (78-100) fl MCH (26-32) pg MCHC (32-36) g/dl RDW (11.5-14.0) % Plt Count (150-450) K/mm3 MPV (7.5-11.0) fl Gran % (36.0-66.0) % Eos # (Auto) (0-0.5) Absolute Lymphs (auto) (1.0-4.6) Absolute Monos (auto) (0.0-1.3) Lymphocytes % (24.0-44.0) % Monocytes % (0.0-12.0) % Eosinophils % (0.00-5.0) % Basophils % (0.0-0.4) % Absolute Granulocytes (1.4-6.9) Basophils # (0-0.4) Sodium (137-145) mmol/L Potassium (3.5-5.1) mmol/L Chloride (98-107) mmol/L Carbon Dioxide (22-30) mmol/L Anion Gap (5-15) MEQ/L BUN (9-20) mg/dL Creatinine (0.66-1.25) mg/dL Estimated GFR ML/MIN Glucose (74-106) mg/dL Calcium (8.4-10.2) mg/dL Magnesium (1.6-2.3) mg/dL Total Bilirubin (0.2-1.3) mg/dL AST (17-59) U/L ALT (0-50) U/L Alkaline Phosphatase (38-126) U/L Creatine Kinase 706 H (55-170) U/L Troponin I 0.033 (0.000-0.034) ng/mL Serum Total Protein (6.3-8.2) g/dL Albumin (3.5-5.0) g/dL Urine Color (YELLOW) Urine Appearance (CLEAR) Urine pH (5-6) Ur Specific Junior (1.005-1.025) Urine Protein (Negative) Urine Ketones (NEGATIVE) Urine Blood (0-5) Lew/ul Urine Nitrite (NEGATIVE) Urine Bilirubin (NEGATIVE) Urine Urobilinogen (0-1) mg/dL Ur Leukocyte Esterase (NEGATIVE) Urine WBC (Auto) (0-5) /HPF Urine RBC (Auto) (0-2) /HPF U Epithel Cells (Auto) (FEW) /HPF Urine Bacteria (Auto) (NEGATIVE) /HPF Urine Culture Reflexed (NO) Ur Random Creatinine MG/DL U Random Total Protein (0-12) mg/dL Urine Sodium (30-90) mmol/L Urine Glucose (NEGATIVE) mg/dL Urine Opiates Level NEGATIVE (NEGATIVE) Ur Methadone NEGATIVE (NEGATIVE) Urine Barbiturates NEGATIVE (NEGATIVE) Ur Phencyclidine (PCP) NEGATIVE (NEGATIVE) Urine Amphetamine NEGATIVE (NEGATIVE) U Benzodiazepine Level NEGATIVE (NEGATIVE) Urine Cocaine NEGATIVE (NEGATIVE) Urine Marijuana (THC) NEGATIVE (NEGATIVE) 03/20/20 03/21/20 03/21/20 Range/Units 18:37 00:53 05:25 WBC 6.8 (4.0-10.5) K/mm3 RBC 2.15 L (4.1-5.6) M/mm3 Hgb 7.7 L (12.5-18.0) gm/dl Hct 25.0 L (42-50) % MCV 116.3 H (78-100) fl MCH 35.8 H (26-32) pg MCHC 30.8 L (32-36) g/dl RDW 14.3 H (11.5-14.0) % Plt Count 123 L (150-450) K/mm3 MPV 9.9 (7.5-11.0) fl Gran % 55.4 (36.0-66.0) % Eos # (Auto) 0.02 (0-0.5) Absolute Lymphs (auto) 1.60 (1.0-4.6) Absolute Monos (auto) 1.36 H (0.0-1.3) Lymphocytes % 23.6 L (24.0-44.0) % Monocytes % 20.0 H (0.0-12.0) % Eosinophils % 0.3 (0.00-5.0) % Basophils % 0.7 (0.0-0.4) % Absolute Granulocytes 3.76 (1.4-6.9) Basophils # 0.05 (0-0.4) Sodium (137-145) mmol/L Potassium (3.5-5.1) mmol/L Chloride (98-107) mmol/L Carbon Dioxide (22-30) mmol/L Anion Gap (5-15) MEQ/L BUN (9-20) mg/dL Creatinine (0.66-1.25) mg/dL Estimated GFR ML/MIN Glucose (74-106) mg/dL Calcium (8.4-10.2) mg/dL Magnesium (1.6-2.3) mg/dL Total Bilirubin (0.2-1.3) mg/dL AST (17-59) U/L ALT (0-50) U/L Alkaline Phosphatase (38-126) U/L Creatine Kinase (55-170) U/L Troponin I 0.033 0.035 H (0.000-0.034) ng/mL Serum Total Protein (6.3-8.2) g/dL Albumin (3.5-5.0) g/dL Urine Color (YELLOW) Urine Appearance (CLEAR) Urine pH (5-6) Ur Specific Junior (1.005-1.025) Urine Protein (Negative) Urine Ketones (NEGATIVE) Urine Blood (0-5) Lew/ul Urine Nitrite (NEGATIVE) Urine Bilirubin (NEGATIVE) Urine Urobilinogen (0-1) mg/dL Ur Leukocyte Esterase (NEGATIVE) Urine WBC (Auto) (0-5) /HPF Urine RBC (Auto) (0-2) /HPF U Epithel Cells (Auto) (FEW) /HPF Urine Bacteria (Auto) (NEGATIVE) /HPF Urine Culture Reflexed (NO) Ur Random Creatinine MG/DL U Random Total Protein (0-12) mg/dL Urine Sodium (30-90) mmol/L Urine Glucose (NEGATIVE) mg/dL Urine Opiates Level (NEGATIVE) Ur Methadone (NEGATIVE) Urine Barbiturates (NEGATIVE) Ur Phencyclidine (PCP) (NEGATIVE) Urine Amphetamine (NEGATIVE) U Benzodiazepine Level (NEGATIVE) Urine Cocaine (NEGATIVE) Urine Marijuana (THC) (NEGATIVE) 03/21/20 03/21/20 03/21/20 Range/Units 05:25 06:00 10:30 WBC (4.0-10.5) K/mm3 RBC (4.1-5.6) M/mm3 Hgb (12.5-18.0) gm/dl Hct (42-50) % MCV (78-100) fl MCH (26-32) pg MCHC (32-36) g/dl RDW (11.5-14.0) % Plt Count (150-450) K/mm3 MPV (7.5-11.0) fl Gran % (36.0-66.0) % Eos # (Auto) (0-0.5) Absolute Lymphs (auto) (1.0-4.6) Absolute Monos (auto) (0.0-1.3) Lymphocytes % (24.0-44.0) % Monocytes % (0.0-12.0) % Eosinophils % (0.00-5.0) % Basophils % (0.0-0.4) % Absolute Granulocytes (1.4-6.9) Basophils # (0-0.4) Sodium 137 (137-145) mmol/L Potassium 5.1 (3.5-5.1) mmol/L Chloride 111 H (98-107) mmol/L Carbon Dioxide 21 L (22-30) mmol/L Anion Gap 10.1 (5-15) MEQ/L BUN 44 H (9-20) mg/dL Creatinine 2.25 H (0.66-1.25) mg/dL Estimated GFR 31.1 ML/MIN Glucose 111 H (74-106) mg/dL Calcium 8.5 (8.4-10.2) mg/dL Magnesium 1.9 (1.6-2.3) mg/dL Total Bilirubin 0.40 (0.2-1.3) mg/dL AST 87 H (17-59) U/L ALT 37 (0-50) U/L Alkaline Phosphatase 70 (38-126) U/L Creatine Kinase (55-170) U/L Troponin I (0.000-0.034) ng/mL Serum Total Protein 6.7 (6.3-8.2) g/dL Albumin 3.1 L (3.5-5.0) g/dL Urine Color YELLOW (YELLOW) Urine Appearance CLOUDY (CLEAR) Urine pH 5.0 (5-6) Ur Specific Junior 1.009 (1.005-1.025) Urine Protein NEGATIVE (Negative) Urine Ketones NEGATIVE (NEGATIVE) Urine Blood SMALL (0-5) Lew/ul Urine Nitrite NEGATIVE (NEGATIVE) Urine Bilirubin NEGATIVE (NEGATIVE) Urine Urobilinogen NEGATIVE (0-1) mg/dL Ur Leukocyte Esterase LARGE (NEGATIVE) Urine WBC (Auto) >100 (0-5) /HPF Urine RBC (Auto) 3-5 (0-2) /HPF U Epithel Cells (Auto) NONE (FEW) /HPF Urine Bacteria (Auto) MODERATE (NEGATIVE) /HPF Urine Culture Reflexed ORDERED SEPARATELY (NO) Ur Random Creatinine MG/DL U Random Total Protein (0-12) mg/dL Urine Sodium (30-90) mmol/L Urine Glucose NEGATIVE (NEGATIVE) mg/dL Urine Opiates Level (NEGATIVE) Ur Methadone (NEGATIVE) Urine Barbiturates (NEGATIVE) Ur Phencyclidine (PCP) (NEGATIVE) Urine Amphetamine (NEGATIVE) U Benzodiazepine Level (NEGATIVE) Urine Cocaine (NEGATIVE) Urine Marijuana (THC) (NEGATIVE) 03/21/20 03/21/20 03/21/20 Range/Units 10:30 10:30 10:30 WBC (4.0-10.5) K/mm3 RBC (4.1-5.6) M/mm3 Hgb (12.5-18.0) gm/dl Hct (42-50) % MCV (78-100) fl MCH (26-32) pg MCHC (32-36) g/dl RDW (11.5-14.0) % Plt Count (150-450) K/mm3 MPV (7.5-11.0) fl Gran % (36.0-66.0) % Eos # (Auto) (0-0.5) Absolute Lymphs (auto) (1.0-4.6) Absolute Monos (auto) (0.0-1.3) Lymphocytes % (24.0-44.0) % Monocytes % (0.0-12.0) % Eosinophils % (0.00-5.0) % Basophils % (0.0-0.4) % Absolute Granulocytes (1.4-6.9) Basophils # (0-0.4) Sodium (137-145) mmol/L Potassium (3.5-5.1) mmol/L Chloride (98-107) mmol/L Carbon Dioxide (22-30) mmol/L Anion Gap (5-15) MEQ/L BUN (9-20) mg/dL Creatinine (0.66-1.25) mg/dL Estimated GFR ML/MIN Glucose (74-106) mg/dL Calcium (8.4-10.2) mg/dL Magnesium (1.6-2.3) mg/dL Total Bilirubin (0.2-1.3) mg/dL AST (17-59) U/L ALT (0-50) U/L Alkaline Phosphatase (38-126) U/L Creatine Kinase (55-170) U/L Troponin I (0.000-0.034) ng/mL Serum Total Protein (6.3-8.2) g/dL Albumin (3.5-5.0) g/dL Urine Color (YELLOW) Urine Appearance (CLEAR) Urine pH (5-6) Ur Specific Junior (1.005-1.025) Urine Protein (Negative) Urine Ketones (NEGATIVE) Urine Blood (0-5) Lew/ul Urine Nitrite (NEGATIVE) Urine Bilirubin (NEGATIVE) Urine Urobilinogen (0-1) mg/dL Ur Leukocyte Esterase (NEGATIVE) Urine WBC (Auto) (0-5) /HPF Urine RBC (Auto) (0-2) /HPF U Epithel Cells (Auto) (FEW) /HPF Urine Bacteria (Auto) (NEGATIVE) /HPF Urine Culture Reflexed (NO) Ur Random Creatinine 36.4 MG/DL U Random Total Protein 27 H (0-12) mg/dL Urine Sodium 123 H (30-90) mmol/L Urine Glucose (NEGATIVE) mg/dL Urine Opiates Level (NEGATIVE) Ur Methadone (NEGATIVE) Urine Barbiturates (NEGATIVE) Ur Phencyclidine (PCP) (NEGATIVE) Urine Amphetamine (NEGATIVE) U Benzodiazepine Level (NEGATIVE) Urine Cocaine (NEGATIVE) Urine Marijuana (THC) (NEGATIVE) Radiology Exams: Radiology Procedures Category Date Time Status CHEST 1 VIEW (PORTABLE) Stat Exams 03/20/20 12:30 Completed HEAD WITHOUT CONTRAST [CT] Stat Exams 03/20/20 12:47 Completed KIDNEY [US] Routine Exams 03/21/20 10:37 Completed Assessment/Plan (1) Alcoholic cirrhosis of liver Current Visit: Yes Status: Acute Assessment & Plan: Overall prognosis is poor. Hx of gastric ulcer and GI Bleed; also concern for possible varices. Code(s): K70.30 - ALCOHOLIC CIRRHOSIS OF LIVER WITHOUT ASCITES (2) Anemia Current Visit: Yes Status: Acute Assessment & Plan: His hgb dropped today. Will recheck this afternoon. I have asked that he be typed and crossed 2 units but would not want to transfuse unless < 7 due to increased risk of bleeding from GI tract if he is transfused. Code(s): D64.9 - ANEMIA, UNSPECIFIED (3) History of gastric ulcer Current Visit: Yes Status: Acute Code(s): Z87.19 - PERSONAL HISTORY OF OTHER DISEASES OF THE DIGESTIVE SYSTEM (4) Melena Current Visit: Yes Status: Acute Assessment & Plan: General surgeon's consulted for possible scope Code(s): K92.1 - MELENA (5) Acute renal failure Current Visit: Yes Status: Acute Assessment & Plan: Dr. Carrasco consulted. (6) Myalgia Current Visit: Yes Status: Acute Assessment & Plan: Most likely due to multiple falls. CPK was elevated. Code(s): M79.10 - MYALGIA, UNSPECIFIED SITE (7) Heart valve replaced Current Visit: Yes Status: Acute Code(s): Z95.2 - PRESENCE OF PROSTHETIC HEART VALVE
[2020-03-21 17:19] LABS: Hematocrit 26.4 % (42-50); Hemoglobin 8.3 gm/dl (12.5-18.0)
[2020-03-21] MEDS ORDERED: Lasix 40 MG/4 ML IV SCH (18:00)
[2020-03-21 18:34] LABS: ABO TYPING A; Antibody Screen NEGATIVE (NEGATIVE); RH TYPING POSITIVE
[2020-03-21] MEDS: PROTONIX 40 MG IV IV SCH (23:35)
[2020-03-22] MEDS: Sodium Bicarbonate 50 MEQ/50 ML VIAL*** 150 MEQ in Dextrose 5%/Water IV Soln. 1000 ML 1... IV SCH (01:06)
[2020-03-22 06:01] LABS: Hematocrit 26.3 % (42-50); Hemoglobin 8.4 gm/dl (12.5-18.0); Mean Cell Volume 112.9 fl (78-100); Mean Corpuscular Hemoglobin 36.1 pg (26-32); Mean Corpuscular Hgb Concent. 31.9 g/dl (32-36); Mean Platelet Volume 9.9 fl (7.5-11.0); Platelet Count 138 K/mm3 (150-450); Red Blood Count 2.33 M/mm3 (4.1-5.6); Red Cell Distribution Width 13.6 % (11.5-14.0); White Blood Count 7.1 K/mm3 (4.0-10.5)
[2020-03-22 06:21] LABS: ALBUMIN 3.6 g/dL (3.5-5.0); BILIRUBIN,TOTAL 0.5 mg/dL (0.2-1.3); Calcium 8.5 mg/dL (8.4-10.2); Creatinine 1 2.11 mg/dL (0.66-1.25); Potassium 4.2 mmol/L (3.5-5.1); Total Protein 7.4 g/dL (6.3-8.2)
--- NOTE | 2020-03-22 10:19 | HP ---
NOTE: I saw him for this admission history and physical on 03/20/2020. HISTORY OF PRESENT ILLNESS: This is a 69 year old man who was brought to the emergency department due to increased weakness and poor oral intake. He has had multiple medical problems in the past. His most significant include history of cirrhosis due to alcohol abuse. He quit drinking alcohol a week ago and was drinking a pint a day. He wants to continue to not drink. He has a history of an upper GI bleed in the past and has had upper endoscopies at [facility] in [place] and was to be following with them later this month. His daughter is at the bedside and did report that he had gotten cleared for a bowel surgery which he had in November but then has been more and more immobile. He has been using a walker for the past few months but unable to walk at all for the past few days. The patient reports that for the past two months his stools have been black and no bright red blood. His daughter states he has been more confused. He has fallen a lot. He had some sutures in his left forearm which they state was from a recent ER visit here at [place] where he needed sutures after a laceration to his arm from a fall. The patient states he is just generally sore all over. He has bruising. No specific joint pain. He denied any weight loss. He has had trouble keeping his balance for a month. He has back pain and neck pain. He denied any fever. No vomiting. He has had diarrhea for two months and they are not sure why. He has been bruising easily for years. No chest pain. No dyspnea. PAST MEDICAL HISTORY: Cirrhosis. Alcohol abuse. Valve replacement. Gastric ulcer with GI bleed. PAST SURGICAL HISTORY: He reports extensions of his legs and extensions of his heart. SOCIAL HISTORY: The patient lives alone. Again, he reports he drinks one pint of alcohol a day and quit seven days ago. He smokes one pack per day of cigarettes. He denies any illicit drug use. FAMILY HISTORY: His mother is living and well. His father is , had a MA and kidney failure and when he was 58. PHYSICAL EXAMINATION: VITAL SIGNS: Temperature current 98.8F, heart rate 73, respiratory rate 16, blood pressure 106/68. Oxygen saturation 100% on room air. GENERAL: The patient is sitting up in bed with his daughter at the bedside with multiple bruises, darkening skin, multiple spider angiomas on his face and abdomen as well as neck. CVS: His heart has a regular rate and rhythm. No murmurs, gallops or rubs are appreciated. CHEST: Clear to auscultation bilaterally. ABDOMEN: Soft, nontender, nondistended. No hepatosplenomegaly is noted. EXTREMITIES: +1 edema bilaterally. His left arm has a scrape with sutures in place and dried blood. LABORATORY DATA AND TESTS: Potassium 5.5, creatinine 2.6, glucose 139, AST 114, troponin 0.036, lipase 484. HgB 9.2, PLT count 153,000, white blood cell count 8.2. Urine culture in lab. UA with greater than 100 white blood cells, moderate bacteria. He had a head CT that was read as atrophy, no acute intracranial abnormalities. Please see the radiologist report for full dictation. Chest x-ray was read as patchy left mid to lower lung infiltrate/atelectasis, a few incidental tiny calcific granulomas. Please see the radiologist dictation for the full report. ASSESSMENT AND PLAN: 1) ALCOHOLIC CIRRHOSIS: The patient reports he has been told about this in the past. He is trying to quit using alcohol. 2) ALCOHOL ABUSE: Again, he quit a week ago and no signs of withdrawal at this time. 3) ANEMIA: This is concerning for possible GI bleed given his history of a gastric ulcer. I will plan to recheck his hemoglobin in the morning. 4) HISTORY OF GASTRIC ULCER: He has been started on Protonix 40 mg IV b.i.d. 5) ACUTE RENAL FAILURE: I have ordered an ultrasound and had the UA done. I have asked Dr. Carrasco, [employer], to see him. 6) MYALGIA: Will check a CPK as he has had multiple falls and most likely has some muscle break down from this. 7) HISTORY OF VALVE REPLACEMENT.
[2020-03-22] MEDS: Acidophilus TABLET PO SCH (10:22)
[2020-03-22] MEDS: ROCEPHIN 1 Gm-D5w 50 ml Bag** 1 G/50 ML IVPB IV SCH (10:22)
[2020-03-22] MEDS: LASIX 20 MG PO SCH (10:22)
[2020-03-22] MEDS: Keppra 250 MG PO SCH ×3 (10:22→22:31)
[2020-03-22] MEDS: Vitamin B-6 (Pyridoxine) 100 MG PO SCH (10:23)
[2020-03-22] MEDS: THIAMINE 200 MG/2 ML IV SCH (10:38)
[2020-03-22] MEDS ORDERED: CITROMA 296 ML PO ONE (14:14)
[2020-03-22] MEDS: Sodium Chloride 0.9% 1000 ML 1,000 ML IV SCH (14:55)
--- NOTE | 2020-03-22 17:57 | PCM.NOTE ---
Date and Time: 03/22/201754 Subjective Assessment: Patient reports he continues to not feel well. He has been trying to drink prep for colonoscopy so scopes can be done to look for source of melena. - Review of Systems Constitutional: Fatigue Respiratory: No Symptoms Cardiac: No Symptoms Abdominal/Gastrointestinal: No Symptoms Genitourinary Symptoms: No Symptoms Musculoskeletal: Myalgias Objective Exam General Appearance: no apparent distress Neurologic Exam: alert, cooperative Skin Exam: normal color, warm, other (multiple eccymosis) Wound Assessment: Skin/Wound Assessment Wound/Incision Assessment Start: 03/20/20 18: 34 Text: Status: Active Freq: Q8H Protocol: Document 03/22/20 12:00 CARON (Rec: 03/22/20 16:43 [id number]) Wound/Incision Assessment Left Lower Arm Wound Assessment Shift Assessment Wound Type Skin Tear Wound Stage Non Pressure Wound Dressing Status Dry & Intact Drainage Amount None Drainage Odor None/Absent General Appearance Well Approximated Primary Dressing Non-Adherent Gauze Pads Comment Stockinette holding dressing in place Cardiovascular Exam: regular rate/rhythm, normal heart sounds, No murmur, No friction rub, No gallop Gastrointestinal/Abdomen Exam: soft, normal bowel sounds, No tenderness, No distention, No mass Extremity Exam: normal inspection, other (+1 edema bilat) OBJECTIVE DATA Vital Signs: Vital Signs - 24 hr Temp Pulse Resp BP Pulse Ox 03/22/20 12:00 98.4 F 74 17 114/60 96 03/22/20 08:00 98.4 F 83 16 93/55 91 L 03/22/20 07:58 91 L 03/22/20 04:00 100.1 F 98 H 22 100/55 93 L 03/22/20 00:00 99.3 F 104 H 18 92/58 95 03/21/20 21:01 96 03/21/20 20:00 98.4 F 99 H 18 110/60 97 Pain Assessment - Last Documented Pain Intensity 0 Pain Scale Used 0-10 Pain Scale Intake and Output: Intake & Output 03/20/20 03/21/20 03/22/20 03/23/20 06:59 06:59 06:59 06:59 Intake Total 1876 2930 360 Output Total 500 2200 Balance 1376 730 360 Weight 104 kg 104.1 kg Lab Results: Lab Results-Last 24 Hours 03/21/20 03/21/20 03/21/20 Range/Units 10:30 16:50 16:50 WBC (4.0-10.5) K/mm3 RBC (4.1-5.6) M/mm3 Hgb (12.5-18.0) gm/dl Hct (42-50) % MCV (78-100) fl MCH (26-32) pg MCHC (32-36) g/dl RDW (11.5-14.0) % Plt Count (150-450) K/mm3 MPV (7.5-11.0) fl Sodium (137-145) mmol/L Potassium (3.5-5.1) mmol/L Chloride (98-107) mmol/L Carbon Dioxide (22-30) mmol/L Anion Gap (5-15) MEQ/L BUN (9-20) mg/dL Creatinine (0.66-1.25) mg/dL Estimated GFR ML/MIN Glucose (74-106) mg/dL Calcium (8.4-10.2) mg/dL Total Bilirubin (0.2-1.3) mg/dL AST (17-59) U/L ALT (0-50) U/L Alkaline Phosphatase (38-126) U/L Creatine Kinase (55-170) U/L Serum Total Protein (6.3-8.2) g/dL Albumin (3.5-5.0) g/dL Ur Eosinophil Smear 0 % ABO Group A Rh Factor POSITIVE Antibody Screen NEGATIVE (NEGATIVE) Crossmatch COMPATIBLE (COMPATIBLE) 03/21/20 03/21/20 03/22/20 Range/Units 16:50 16:50 05:40 WBC 7.1 (4.0-10.5) K/mm3 RBC 2.33 L (4.1-5.6) M/mm3 Hgb 8.4 L (12.5-18.0) gm/dl Hct 26.3 L (42-50) % MCV 112.9 H (78-100) fl MCH 36.1 H (26-32) pg MCHC 31.9 L (32-36) g/dl RDW 13.6 (11.5-14.0) % Plt Count 138 L (150-450) K/mm3 MPV 9.9 (7.5-11.0) fl Sodium (137-145) mmol/L Potassium (3.5-5.1) mmol/L Chloride (98-107) mmol/L Carbon Dioxide (22-30) mmol/L Anion Gap (5-15) MEQ/L BUN (9-20) mg/dL Creatinine (0.66-1.25) mg/dL Estimated GFR ML/MIN Glucose (74-106) mg/dL Calcium (8.4-10.2) mg/dL Total Bilirubin (0.2-1.3) mg/dL AST (17-59) U/L ALT (0-50) U/L Alkaline Phosphatase (38-126) U/L Creatine Kinase (55-170) U/L Serum Total Protein (6.3-8.2) g/dL Albumin (3.5-5.0) g/dL Ur Eosinophil Smear % ABO Group Rh Factor Antibody Screen (NEGATIVE) Crossmatch COMPATIBLE COMPATIBLE (COMPATIBLE) 03/22/20 Range/Units 05:40 WBC (4.0-10.5) K/mm3 RBC (4.1-5.6) M/mm3 Hgb (12.5-18.0) gm/dl Hct (42-50) % MCV (78-100) fl MCH (26-32) pg MCHC (32-36) g/dl RDW (11.5-14.0) % Plt Count (150-450) K/mm3 MPV (7.5-11.0) fl Sodium 134 L (137-145) mmol/L Potassium 4.2 (3.5-5.1) mmol/L Chloride 98 (98-107) mmol/L Carbon Dioxide 27 (22-30) mmol/L Anion Gap 13.0 (5-15) MEQ/L BUN 32 H (9-20) mg/dL Creatinine 2.11 H (0.66-1.25) mg/dL Estimated GFR 33.5 ML/MIN Glucose 136 H (74-106) mg/dL Calcium 8.5 (8.4-10.2) mg/dL Total Bilirubin 0.50 (0.2-1.3) mg/dL AST 89 H (17-59) U/L ALT 42 (0-50) U/L Alkaline Phosphatase 89 (38-126) U/L Creatine Kinase 312 H (55-170) U/L Serum Total Protein 7.4 (6.3-8.2) g/dL Albumin 3.6 (3.5-5.0) g/dL Ur Eosinophil Smear % ABO Group Rh Factor Antibody Screen (NEGATIVE) Crossmatch (COMPATIBLE) Radiology Exams: Radiology Procedures Category Date Time Status KIDNEY [US] Routine Exams 03/21/20 10:37 Completed Multi-Disciplinary Progress Notes: Multi-Disciplinary Progress Notes 03/22/20 16:25 Physical Therapy Note by Willa Waldrop P.T. HELD THIS DATE STILL ATTEMPTING BOWEL PREP AND THEN IS TO HAVE COLONOSCOPY AT 3 PM. WILL CONT. P.T. NEXT WEEK. SHOULD CONT. ASSISTED TRASNFERS AND GAIT TOLERATED W/ NSG STAFF OVER THE WEEKEND. WILLA WALDROP, PT Initialized on 03/22/20 16:25 - END OF NOTE 03/22/20 10:34 Case Management Note by Gema Eckert S/W PATIENT ABOUT NEEDING TO ARRANGE FOR HIM TO DO REHAB AT A FACILITY. HE WILL S/W WITH HIS DAUGHTER AND DISCUSS WHERE HE WOULD LIKE TO GO Initialized on 03/22/20 10:34 - END OF NOTE Assessment/Plan (1) Alcoholic cirrhosis of liver Current Visit: Yes Status: Acute Assessment & Plan: Overall prognosis is guarded. Patient is trying to quit drinking alcohol. Code(s): K70.30 - ALCOHOLIC CIRRHOSIS OF LIVER WITHOUT ASCITES (2) Anemia Current Visit: Yes Status: Acute Assessment & Plan: Hgb Stable at this time. General surgeons planning on upper and lower endoscopies today. Code(s): D64.9 - ANEMIA, UNSPECIFIED (3) History of gastric ulcer Current Visit: Yes Status: Acute Code(s): Z87.19 - PERSONAL HISTORY OF OTHER DISEASES OF THE DIGESTIVE SYSTEM (4) Melena Current Visit: Yes Status: Acute Code(s): K92.1 - MELENA (5) Acute renal failure Current Visit: Yes Status: Acute Assessment & Plan: Dr. Carrasco saw the patient and is following. (6) Myalgia Current Visit: Yes Status: Acute Code(s): M79.10 - MYALGIA, UNSPECIFIED SITE (7) Heart valve replaced Current Visit: Yes Status: Acute Code(s): Z95.2 - PRESENCE OF PROSTHETIC HEART VALVE
[2020-03-22] MEDS: PROTONIX 40 MG IV IV SCH (22:31)
[2020-03-23 09:00] LABS: Absolute Neutrophil Ct (ANC) 3.37 (1.4-6.9); BASOPHIL % 0.7 % (0.0-0.4); Basophil (Absolute #) 0.04 (0-0.4); Eosinophil % 1.3 % (0.00-5.0); Eosinophil (Absolute #) 0.07 (0-0.5); Hemoglobin 8.5 gm/dl (12.5-18.0); Lymphocyte (Absolute #) 1.24 (1.0-4.6); Lymphocytes % 22.2 % (24.0-44.0); Mean Cell Volume 113.4 fl (78-100); Mean Corpuscular Hemoglobin 35.7 pg (26-32); Mean Corpuscular Hgb Concent. 31.5 g/dl (32-36); Mean Platelet Volume 9.9 fl (7.5-11.0); Monocyte (Absolute #) 0.86 (0.0-1.3); Monocytes % 15.4 % (0.0-12.0); Neutrophil % 60.4 % (36.0-66.0); Platelet Count 158 K/mm3 (150-450); Red Blood Count 2.38 M/mm3 (4.1-5.6); Red Cell Distribution Width 13.6 % (11.5-14.0); White Blood Count 5.6 K/mm3 (4.0-10.5)
[2020-03-23] MEDS ORDERED: Lactated Ringers 1,000 ML IV SCH (09:30)
[2020-03-23 09:38] LABS: Calcium 8.5 mg/dL (8.4-10.2); Creatinine 1 1.63 mg/dL (0.66-1.25); Potassium 4.3 mmol/L (3.5-5.1)
[2020-03-23] MEDS ORDERED: DIPRIVAN 200 MG/20 ML IV ONE ×2 (10:09→10:19)
[2020-03-23] MEDS: LASIX 20 MG PO SCH (11:30)
[2020-03-23] MEDS: Acidophilus TABLET PO SCH (11:30)
[2020-03-23] MEDS: Keppra 250 MG PO SCH ×2 (11:30→21:06)
[2020-03-23] MEDS: THIAMINE 200 MG/2 ML IV SCH (11:31)
[2020-03-23] MEDS: ROCEPHIN 1 Gm-D5w 50 ml Bag** 1 G/50 ML IVPB IV SCH (11:33)
[2020-03-23] MEDS: Vitamin B-6 (Pyridoxine) 100 MG PO SCH (11:34)
--- NOTE | 2020-03-23 11:34 | PCM.NOTE ---
Date and Time: 03/23/20 1132 Subjective Assessment: Patient states he still feels sore. He is to have his scopes today. He does not have any other concerns or questions. - Review of Systems Constitutional: Weakness Respiratory: No Symptoms Cardiac: No Symptoms Abdominal/Gastrointestinal: No Symptoms Genitourinary Symptoms: No Symptoms Musculoskeletal: No Symptoms Objective Exam General Appearance: no apparent distress, alert, other (flat affect) Neurologic Exam: alert, cooperative Skin Exam: normal color, warm, dry, other (multiple eccymosis) Wound Assessment: Skin/Wound Assessment Wound/Incision Assessment Start: 03/20/20 18: 34 Text: Status: Active Freq: Q8H Protocol: Document 03/23/20 04:00 LM (Rec: 03/23/20 04:[address]) Wound/Incision Assessment Left Lower Arm Wound Assessment Shift Assessment Wound Type Skin Tear Wound Stage Non Pressure Wound Dressing Status Dry & Intact Drainage Amount None Drainage Odor None/Absent General Appearance Well Approximated Primary Dressing Non-Adherent Gauze Pads Comment Stockinette holding dressing in place Wound Photo Photo Taken No Respiratory Exam: normal breath sounds, lungs clear, No crackles/rales, No rhonchi, No wheezing Cardiovascular Exam: regular rate/rhythm, normal heart sounds, No murmur, No friction rub, No gallop Gastrointestinal/Abdomen Exam: soft, normal bowel sounds, No tenderness, No distention, No mass Extremity Exam: other (no c/c/e) OBJECTIVE DATA Vital Signs: Vital Signs - 24 hr Temp Pulse Resp BP Pulse Ox 03/23/20 08:03 98.8 F 72 18 119/64 95 03/23/20 08:00 98.2 F 81 20 110/60 97 03/23/20 04:13 98.8 F 72 18 119/64 95 03/22/20 23:54 98.6 F 74 18 109/57 96 03/22/20 20:01 98.4 F 75 20 111/55 95 03/22/20 19:20 95 03/22/20 16:00 98.3 F 89 17 120/60 94 L 03/22/20 12:00 98.4 F 74 17 114/60 96 Pain Assessment - Last Documented Pain Intensity 0 Pain Scale Used 0-10 Pain Scale Intake and Output: Intake & Output 03/21/20 03/22/20 03/23/2020 06:59 06:59 06:59 06:59 Intake Total 1876 2930 3455 0 Output Total 500 2200 1900 Balance 6884 492 6428 0 Weight 104 kg 104.1 kg 104.1 kg 104.1 kg Lab Results: Lab Results-Last 24 Hours 03/21/20 03/21/20 03/23/20 Range/Units 10:30 16:50 08:45 WBC 5.6 (4.0-10.5) K/mm3 RBC 2.38 L (4.1-5.6) M/mm3 Hgb 8.5 L (12.5-18.0) gm/dl Hct 27.0 L (42-50) % MCV 113.4 H (78-100) fl MCH 35.7 H (26-32) pg MCHC 31.5 L (32-36) g/dl RDW 13.6 (11.5-14.0) % Plt Count 158 (150-450) K/mm3 MPV 9.9 (7.5-11.0) fl Gran % 60.4 (36.0-66.0) % Eos # (Auto) 0.07 (0-0.5) Absolute Lymphs (auto) 1.24 (1.0-4.6) Absolute Monos (auto) 0.86 (0.0-1.3) Lymphocytes % 22.2 L (24.0-44.0) % Monocytes % 15.4 H (0.0-12.0) % Eosinophils % 1.3 (0.00-5.0) % Basophils % 0.7 (0.0-0.4) % Absolute Granulocytes 3.37 (1.4-6.9) Basophils # 0.04 (0-0.4) Sodium (137-145) mmol/L Potassium (3.5-5.1) mmol/L Chloride (98-107) mmol/L Carbon Dioxide (22-30) mmol/L Anion Gap (5-15) MEQ/L BUN (9-20) mg/dL Creatinine (0.66-1.25) mg/dL Estimated GFR ML/MIN Glucose (74-106) mg/dL Calcium (8.4-10.2) mg/dL Ur Eosinophil Smear 0 % Crossmatch COMPATIBLE (COMPATIBLE) 03/23/20 Range/Units 08:45 WBC (4.0-10.5) K/mm3 RBC (4.1-5.6) M/mm3 Hgb (12.5-18.0) gm/dl Hct (42-50) % MCV (78-100) fl MCH (26-32) pg MCHC (32-36) g/dl RDW (11.5-14.0) % Plt Count (150-450) K/mm3 MPV (7.5-11.0) fl Gran % (36.0-66.0) % Eos # (Auto) (0-0.5) Absolute Lymphs (auto) (1.0-4.6) Absolute Monos (auto) (0.0-1.3) Lymphocytes % (24.0-44.0) % Monocytes % (0.0-12.0) % Eosinophils % (0.00-5.0) % Basophils % (0.0-0.4) % Absolute Granulocytes (1.4-6.9) Basophils # (0-0.4) Sodium 137 (137-145) mmol/L Potassium 4.3 (3.5-5.1) mmol/L Chloride 103 (98-107) mmol/L Carbon Dioxide 25 (22-30) mmol/L Anion Gap 13.0 (5-15) MEQ/L BUN 19 (9-20) mg/dL Creatinine 1.63 H (0.66-1.25) mg/dL Estimated GFR 45.1 ML/MIN Glucose 110 H (74-106) mg/dL Calcium 8.5 (8.4-10.2) mg/dL Ur Eosinophil Smear % Crossmatch (COMPATIBLE) Radiology Exams: Radiology Procedures Category Date Time Status KIDNEY [US] Routine Exams 03/21/20 10:37 Completed Multi-Disciplinary Progress Notes: Multi-Disciplinary Progress Notes 03/22/20 16:25 Physical Therapy Note by Willa Waldrop P.T. HELD THIS DATE STILL ATTEMPTING BOWEL PREP AND THEN IS TO HAVE COLONOSCOPY AT 3 PM. WILL CONT. P.T. NEXT WEEK. SHOULD CONT. ASSISTED TRASNFERS AND GAIT TOLERATED W/ NSG STAFF OVER THE WEEKEND. WILLA WALDROP PT Initialized on 03/22/20 16:25 - END OF NOTE Assessment/Plan (1) Alcoholic cirrhosis of liver Current Visit: Yes Status: Acute Assessment & Plan: Overall prognosis is guarded and poor. Code(s): K70.30 - ALCOHOLIC CIRRHOSIS OF LIVER WITHOUT ASCITES (2) Anemia Current Visit: Yes Status: Acute Assessment & Plan: Hgb is stable at this time; having scopes today with general surgeons. Code(s): D64.9 - ANEMIA, UNSPECIFIED (3) History of gastric ulcer Current Visit: Yes Status: Acute Code(s): Z87.19 - PERSONAL HISTORY OF OTHER DISEASES OF THE DIGESTIVE SYSTEM (4) Melena Current Visit: Yes Status: Acute Code(s): K92.1 - MELENA (5) Acute renal failure Current Visit: Yes Status: Acute Assessment & Plan: Creatinine is improved today. I appreciated Dr. Carrasco's consultation. (6) Myalgia Current Visit: Yes Status: Acute Code(s): M79.10 - MYALGIA, UNSPECIFIED SITE (7) Heart valve replaced Current Visit: Yes Status: Acute Code(s): Z95.2 - PRESENCE OF PROSTHETIC HEART VALVE
[2020-03-23] MEDS: Sodium Chloride 0.9% 1000 ML 1,000 ML IV SCH (20:19)
[2020-03-23] MEDS: PROTONIX 40 MG IV IV SCH (21:06)
[2020-03-24 06:39] LABS: ANION GAP 9.8 MEQ/L (5-15); Calcium 8.4 mg/dL (8.4-10.2); Creatinine 1 1.53 mg/dL (0.66-1.25); Potassium 4.1 mmol/L (3.5-5.1)
[2020-03-24 06:46] LABS: Absolute Neutrophil Ct (ANC) 2.64 (1.4-6.9); Basophil (Absolute #) 0.05 (0-0.4); Eosinophil % 1.6 % (0.00-5.0); Eosinophil (Absolute #) 0.08 (0-0.5); Hematocrit 25.8 % (42-50); Hemoglobin 8.2 gm/dl (12.5-18.0); Lymphocyte (Absolute #) 1.66 (1.0-4.6); Lymphocytes % 33.1 % (24.0-44.0); Mean Cell Volume 115.2 fl (78-100); Mean Corpuscular Hemoglobin 36.6 pg (26-32); Mean Corpuscular Hgb Concent. 31.8 g/dl (32-36); Mean Platelet Volume 9.9 fl (7.5-11.0); Monocyte (Absolute #) 0.58 (0.0-1.3); Monocytes % 11.6 % (0.0-12.0); Neutrophil % 52.7 % (36.0-66.0); Platelet Count 176 K/mm3 (150-450); Red Blood Count 2.24 M/mm3 (4.1-5.6); Red Cell Distribution Width 13.4 % (11.5-14.0)
[2020-03-24] MEDS: LASIX 20 MG PO SCH (10:00)
[2020-03-24] MEDS: Acidophilus TABLET PO SCH (10:00)
[2020-03-24] MEDS: THIAMINE 200 MG/2 ML IV SCH (10:00)
[2020-03-24] MEDS: Keppra 250 MG PO SCH ×2 (10:00→21:40)
[2020-03-24] MEDS: ROCEPHIN 1 Gm-D5w 50 ml Bag** 1 G/50 ML IVPB IV SCH (10:01)
[2020-03-24] MEDS: Vitamin B-6 (Pyridoxine) 100 MG PO SCH (10:16)
[2020-03-24] MEDS: Protonix 40MG Tablet PO SCH (12:13)
--- NOTE | 2020-03-24 13:50 | PCM.NOTE ---
Date and Time: 03/24/20 1345 Subjective Assessment: Patient reports he continues to feel fatigued and generally sore. He was able to have his upper and lower endoscopies yesterday with the general surgeon. He is interested in a rehab stay somewhere. His daughter is at the bedside this am. - Review of Systems Constitutional: Weakness Respiratory: No Symptoms Cardiac: No Symptoms Abdominal/Gastrointestinal: No Symptoms Genitourinary Symptoms: No Symptoms Musculoskeletal: Myalgias Objective Exam General Appearance: no apparent distress Neurologic Exam: alert, cooperative, other (flat affect) Skin Exam: normal color, other (multiple ecchymosis) Wound Assessment: Skin/Wound Assessment Wound/Incision Assessment Start: 03/20/20 18: 34 Text: Status: Active Freq: Q8H Protocol: Document 03/24/20 12:00 AR (Rec: 03/24/20 13:05 AR [id number]) Wound/Incision Assessment Left Lower Arm Wound Assessment Shift Assessment Wound Type Skin Tear Wound Stage Non Pressure Wound Dressing Status Dry & Intact Drainage Amount None Drainage Odor None/Absent General Appearance Well Approximated Primary Dressing Non-Adherent Gauze Pads Comment Stockinette holding dressing in place Wound Photo Photo Taken No Respiratory Exam: normal breath sounds, lungs clear, No crackles/rales, No rhonchi, No wheezing Cardiovascular Exam: regular rate/rhythm, normal heart sounds, No murmur, No friction rub, No gallop Gastrointestinal/Abdomen Exam: soft, normal bowel sounds, No tenderness, No distention Extremity Exam: other (no c/c/e) OBJECTIVE DATA Vital Signs: Vital Signs - 24 hr Temp Pulse Resp BP Pulse Ox 03/24/20 12:00 98.3 F 67 20 107/55 95 03/24/20 10:48 97 03/24/20 08:00 98.5 F 71 18 133/61 98 03/24/20 04:15 98.7 F 83 15 110/56 97 03/24/20 04:00 98.5 F 70 20 110/55 95 03/23/20 23:41 98.5 F 70 20 110/55 95 03/23/20 21:09 93 L 03/23/20 20:23 98.4 F 75 19 115/57 91 L 03/23/20 16:00 98.1 F 72 14 107/56 95 Pain Assessment - Last Documented Pain Intensity 0 Pain Scale Used 0-10 Pain Scale Intake and Output: Intake & Output 03/22/20 03/23/20 03/24/20 03/25/20 06:59 06:59 06:59 06:59 Intake Total 2930 3455 2887 240 Output Total 2200 1900 1750 Balance 730 1555 1137 240 Weight 104.1 kg 104.1 kg 104.9 kg Lab Results: Lab Results-Last 24 Hours 03/24/20 03/24/20 Range/Units 05:40 05:40 WBC 5.0 (4.0-10.5) K/mm3 RBC 2.24 L (4.1-5.6) M/mm3 Hgb 8.2 L (12.5-18.0) gm/dl Hct 25.8 L (42-50) % MCV 115.2 H (78-100) fl MCH 36.6 H (26-32) pg MCHC 31.8 L (32-36) g/dl RDW 13.4 (11.5-14.0) % Plt Count 176 (150-450) K/mm3 MPV 9.9 (7.5-11.0) fl Gran % 52.7 (36.0-66.0) % Eos # (Auto) 0.08 (0-0.5) Absolute Lymphs (auto) 1.66 (1.0-4.6) Absolute Monos (auto) 0.58 (0.0-1.3) Lymphocytes % 33.1 (24.0-44.0) % Monocytes % 11.6 (0.0-12.0) % Eosinophils % 1.6 (0.00-5.0) % Basophils % 1.0 (0.0-0.4) % Absolute Granulocytes 2.64 (1.4-6.9) Basophils # 0.05 (0-0.4) Sodium 136 L (137-145) mmol/L Potassium 4.1 (3.5-5.1) mmol/L Chloride 107 (98-107) mmol/L Carbon Dioxide 24 (22-30) mmol/L Anion Gap 9.8 (5-15) MEQ/L BUN 14 (9-20) mg/dL Creatinine 1.53 H (0.66-1.25) mg/dL Estimated GFR 48.5 ML/MIN Glucose 102 (74-106) mg/dL Calcium 8.4 (8.4-10.2) mg/dL Multi-Disciplinary Progress Notes: Multi-Disciplinary Progress Notes 03/24/20 11:27 Case Management Note by Criss Mai DISCHARGE PLAN DISCUSSED WITH GAMING FLOOR SUPERVISOR. DR. ALCANTAR ROUNDED AND PT EXPRESSED TO HER THAT HE WOULD LIKE TO DO SWING BED. DR. ALCANTAR DOES NOT FEEL THAT SWINGBED WOULD BE APPROPRIATE, THAT HE NEEDED LONGER TERM CARE THAN WE WOULD BE ABLE TO GIVE. NOTIFY DISCHARGE PLANNING THAT PATIENT SECOND CHOICE WOULD BE [facility]. 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 Patient has generalized weakness most likely due to chronic illness. Planning for rehab stay somewhere. Discharge planning consulted. Code(s): K70.30 - ALCOHOLIC CIRRHOSIS OF LIVER WITHOUT ASCITES (2) Anemia Current Visit: Yes Status: Acute Qualifiers: Anemia type: unspecified type Qualified Code(s): D64.9 - Anemia, unspecified Assessment & Plan: Stable at this time and >8. Code(s): D64.9 - ANEMIA, UNSPECIFIED (3) Acute renal failure Current Visit: Yes Status: Acute Assessment & Plan: Much improved with fluids. CR is 1.5 today. He has been seen by the camera mechanic. (4) Myalgia Current Visit: Yes Status: Acute Code(s): M79.10 - MYALGIA, UNSPECIFIED SITE (5) Heart valve replaced Current Visit: Yes Status: Acute Code(s): Z95.2 - PRESENCE OF PROSTHETIC HEART VALVE (6) Duodenal ulcer Current Visit: Yes Status: Acute Assessment & Plan: Written report in chart says nearly healed. Continue pantoprazole bid and change from IV to oral (7) GERD (gastroesophageal reflux disease) Current Visit: Yes Status: Acute Assessment & Plan: Continue ppi. Code(s): K21.9 - GASTRO-ESOPHAGEAL REFLUX DISEASE WITHOUT ESOPHAGITIS (8) Cecal polyp Current Visit: Yes Status: Acute Assessment & Plan: path pending Code(s): K63.5 - POLYP OF COLON (9) Diverticulosis large intestine w/o perforation or abscess w/o bleeding Current Visit: Yes Status: Acute Assessment & Plan: Found on colonoscopy. Code(s): K57.30 - DVRTCLOS OF LG INT W/O PERFORATION OR ABSCESS W/O BLEEDING
[2020-03-24] MEDS: Sodium Chloride 0.9% 1000 ML 1,000 ML IV SCH (16:20)
[2020-03-25 05:42] LABS: ANION GAP 11.4 MEQ/L (5-15); Calcium 8.7 mg/dL (8.4-10.2); Creatinine 1 1.49 mg/dL (0.66-1.25); Potassium 4.2 mmol/L (3.5-5.1)
[2020-03-25 05:50] LABS: Absolute Neutrophil Ct (ANC) 3.45 (1.4-6.9); Basophil (Absolute #) 0.06 (0-0.4); Eosinophil % 1.4 % (0.00-5.0); Eosinophil (Absolute #) 0.08 (0-0.5); Hematocrit 25.5 % (42-50); Hemoglobin 7.9 gm/dl (12.5-18.0); Lymphocyte (Absolute #) 1.62 (1.0-4.6); Mean Cell Volume 114.3 fl (78-100); Mean Corpuscular Hemoglobin 35.4 pg (26-32); Mean Platelet Volume 9.9 fl (7.5-11.0); Monocyte (Absolute #) 0.58 (0.0-1.3); Neutrophil % 59.6 % (36.0-66.0); Platelet Count 211 K/mm3 (150-450); Red Blood Count 2.23 M/mm3 (4.1-5.6); Red Cell Distribution Width 13.6 % (11.5-14.0); White Blood Count 5.8 K/mm3 (4.0-10.5)
--- NOTE | 2020-03-25 08:11 | PCM.NOTE ---
Date and Time: 03/25/20 08 Subjective Assessment: patient reports he is feeling better, soreness is improved. no vomiting, no blood in the stool Objective Exam General Appearance: no apparent distress, alert Skin Exam: normal color, warm, dry, other (bruising present) Wound Assessment: Skin/Wound Assessment Wound/Incision Assessment Start: 03/20/20 18: 34 Text: Status: Active Freq: Q8H Protocol: Document 03/25/20 04:00 LEEANN (Rec: 03/25/20 04:15 LEEANN [id number]) Wound/Incision Assessment Left Lower Arm Wound Assessment Shift Assessment Wound Type Skin Tear Wound Stage Non Pressure Wound Dressing Status Dry & Intact Drainage Amount None Drainage Odor None/Absent General Appearance Well Approximated Primary Dressing Non-Adherent Gauze Pads Comment Stockinette holding dressing in place Wound Photo Photo Taken No Respiratory Exam: normal breath sounds, lungs clear, No respiratory distress Cardiovascular Exam: regular rate/rhythm, normal heart sounds Gastrointestinal/Abdomen Exam: soft, No tenderness, No mass OBJECTIVE DATA Vital Signs: Vital Signs - 24 hr Temp Pulse Resp BP Pulse Ox 03/25/20 06:56 92 L 03/25/20 04:11 98.8 F 74 18 113/54 93 L 03/24/20 23:39 99.0 F 79 16 118/56 95 03/24/20 19:46 98.4 F 77 16 127/56 93 L 03/24/20 19:37 93 L 03/24/20 16:00 98.4 F 71 14 104/53 95 03/24/20 12:00 98.3 F 67 20 107/55 95 03/24/20 10:48 97 Pain Assessment - Last Documented Pain Intensity 0 Pain Scale Used 0-10 Pain Scale Intake and Output: Intake & Output 03/22/20 03/23/20 03/24/20 03/25/20 11:59 11:59 11:59 11:59 Intake Total 2690 3455 3127 2618 Output Total 1999 1900 1750 3250 Balance 690 1555 1377 -632 Weight 104.1 kg 104.1 kg 104.9 kg 106 kg Lab Results: Lab Results-Last 24 Hours 03/25/20 03/25/20 Range/Units 04:45 04:45 WBC 5.8 (4.0-10.5) K/mm3 RBC 2.23 L (4.1-5.6) M/mm3 Hgb 7.9 L (12.5-18.0) gm/dl Hct 25.5 L (42-50) % MCV 114.3 H (78-100) fl MCH 35.4 H (26-32) pg MCHC 31.0 L (32-36) g/dl RDW 13.6 (11.5-14.0) % Plt Count 211 (150-450) K/mm3 MPV 9.9 (7.5-11.0) fl Gran % 59.6 (36.0-66.0) % Eos # (Auto) 0.08 (0-0.5) Absolute Lymphs (auto) 1.62 (1.0-4.6) Absolute Monos (auto) 0.58 (0.0-1.3) Lymphocytes % 28.0 (24.0-44.0) % Monocytes % 10.0 (0.0-12.0) % Eosinophils % 1.4 (0.00-5.0) % Basophils % 1.0 (0.0-0.4) % Absolute Granulocytes 3.45 (1.4-6.9) Basophils # 0.06 (0-0.4) Sodium 137 (137-145) mmol/L Potassium 4.2 (3.5-5.1) mmol/L Chloride 107 (98-107) mmol/L Carbon Dioxide 23 (22-30) mmol/L Anion Gap 11.4 (5-15) MEQ/L BUN 14 (9-20) mg/dL Creatinine 1.49 H (0.66-1.25) mg/dL Estimated GFR 50.0 ML/MIN Glucose 116 H (74-106) mg/dL Calcium 8.7 (8.4-10.2) mg/dL Multi-Disciplinary Progress Notes: Multi-Disciplinary Progress Notes 03/24/20 11:27 Case Management Note by Criss Mai DISCHARGE PLAN DISCUSSED WITH RESIDENT CARE AID. DR. ALCANTAR ROUNDED AND PT EXPRESSED TO HER THAT HE WOULD LIKE TO DO SWING BED. DR. ALCANTAR DOES NOT FEEL THAT SWINGBED WOULD BE APPROPRIATE, THAT HE NEEDED LONGER TERM CARE THAN WE WOULD BE ABLE TO GIVE. NOTIFY DISCHARGE PLANNING THAT PATIENT SECOND CHOICE WOULD BE [facility]. Initialized on 03/24/20 11:27 - END OF NOTE Assessment/Plan (1) Duodenal ulcer Current Visit: Yes Status: Acute Assessment & Plan: h/h stable, will likely need ecf stay. he again expresses desire to stay at [facility] but documentation shows plan for [facility], will likely need longer term care than [facility] can provide (2) Alcoholic cirrhosis of liver Current Visit: Yes Status: Acute Code(s): K70.30 - ALCOHOLIC CIRRHOSIS OF LIVER WITHOUT ASCITES (3) Diverticulosis large intestine w/o perforation or abscess w/o bleeding Current Visit: Yes Status: Acute Code(s): K57.30 - DVRTCLOS OF LG INT W/O PERFORATION OR ABSCESS W/O BLEEDING
[2020-03-25] MEDS: ROCEPHIN 1 Gm-D5w 50 ml Bag** 1 G/50 ML IVPB IV SCH (09:11)
[2020-03-25] MEDS: LASIX 20 MG PO SCH (09:13)
[2020-03-25] MEDS: Acidophilus TABLET PO SCH (09:13)
[2020-03-25] MEDS: Keppra 250 MG PO SCH ×2 (09:13→21:21)
[2020-03-25] MEDS: Protonix 40MG Tablet PO SCH (09:14)
[2020-03-25] MEDS: VITAMIN B-1 100 MG PO SCH (09:14)
[2020-03-25] MEDS: Vitamin B-6 (Pyridoxine) 100 MG PO SCH (09:15)
--- NOTE | 2020-03-25 13:33 | OP ---
SURGERY DATE: 03/23/2020 SURGERY TIME: 101 PREOPERATIVE DIAGNOSIS: 1. GASTROINTESTINAL BLEED. POSTOPERATIVE DIAGNOSIS: 1. RESOLVING DUODENAL ULCERS, NEARLY RESOLVED. 2. ANTRITIS, NEARLY RESOLVED. 3. GRADE 3/3 GASTROESOPHAGEAL REFLUX DISEASE. 4. 1.2 CM CECAL POLYP TAKE WITH A HOT POLYPECTOMY. PROCEDURE: 1. Esophagogastroduodenoscopy with cold biopsy for ARNOLD test X 1. 2. Colonoscopy complete to cecum with hot polypectomy X 1. SURGEON: Reji Pardo M.D. ANESTHESIA: MAC. COMPLICATIONS: None. CONDITION: Stable. INDICATION: Patient requiring evaluation. OPERATIVE PROCEDURE: Taken to endoscopy. MAC sedation provided. N95 mask was worn. Scope introduced. Pharyngoesophageal junction satisfactory. Esophagus satisfactory down to esophagogastric junction. Grade 3/3 esophagitis. There was no hiatal hernia and there were no varices. Fundus and body normal. There was mild to moderate antritis which was resolving. Pylorus slightly spastic. Duodenum - There was chronic distortion, but there had been 2 recent ulcers which are nearly healed and not currently bleeding. Second portion satisfactory. Scope withdrawn. No hiatal hernia. Anal digital examination satisfactory. There was poor prep, but the scope was advanced to the cecum. Ileocecal valve and appendiceal orifice normal. About an inch up was a 1 cm polyp which was taken by hot biopsy forceps. Hemostasis satisfactory. Scope was then circumferentially withdrawn. Within the limits of the exam with the poor prep, there were no additional findings. Patient tolerated the procedure satisfactory.
[2020-03-25] MEDS: Sodium Chloride 0.9% 1000 ML 1,000 ML IV SCH (14:27)
[2020-03-26] MEDS: Sodium Chloride 0.9% 1000 ML 1,000 ML IV SCH ×3 (05:19→21:01)
[2020-03-26 05:26] LABS: Absolute Neutrophil Ct (ANC) 3.68 (1.4-6.9); BASOPHIL % 1.3 % (0.0-0.4); Basophil (Absolute #) 0.08 (0-0.4); Eosinophil (Absolute #) 0.12 (0-0.5); Hematocrit 23.9 % (42-50); Hemoglobin 7.4 gm/dl (12.5-18.0); Lymphocytes % 26.9 % (24.0-44.0); Mean Cell Volume 114.4 fl (78-100); Mean Corpuscular Hemoglobin 35.4 pg (26-32); Mean Platelet Volume 9.6 fl (7.5-11.0); Monocyte (Absolute #) 0.47 (0.0-1.3); Monocytes % 7.9 % (0.0-12.0); Neutrophil % 61.9 % (36.0-66.0); Platelet Count 211 K/mm3 (150-450); Red Blood Count 2.09 M/mm3 (4.1-5.6); Red Cell Distribution Width 13.5 % (11.5-14.0)
[2020-03-26 05:45] LABS: INR 1.07 (0.8-3.0); PROTIME 12.1 SECONDS (8.83-12.87)
[2020-03-26 05:58] LABS: ALBUMIN 2.8 g/dL (3.5-5.0); ANION GAP 9.9 MEQ/L (5-15); BILIRUBIN,TOTAL 0.2 mg/dL (0.2-1.3); Calcium 8.8 mg/dL (8.4-10.2); Creatinine 1 1.35 mg/dL (0.66-1.25); MAGNESIUM 1.6 mg/dL (1.6-2.3); Total Protein 6.2 g/dL (6.3-8.2)
[2020-03-26] MEDS: ROCEPHIN 1 Gm-D5w 50 ml Bag** 1 G/50 ML IVPB IV SCH (10:29)
[2020-03-26] MEDS: Inderal 20 MG PO SCH ×3 (10:33→21:01)
[2020-03-26] MEDS: Acidophilus TABLET PO SCH (10:33)
[2020-03-26] MEDS: Keppra 250 MG PO SCH ×2 (10:34→21:02)
[2020-03-26] MEDS: Protonix 40MG Tablet PO SCH (10:34)
[2020-03-26] MEDS: LASIX 20 MG PO SCH (10:34)
[2020-03-26] MEDS: VITAMIN B-1 100 MG PO SCH (10:35)
[2020-03-26] MEDS: Vitamin B-6 (Pyridoxine) 100 MG PO SCH (10:35)
[2020-03-26 11:19] LABS: ABO TYPING A; Antibody Screen NEGATIVE (NEGATIVE); RH TYPING POSITIVE
[2020-03-26 11:23] LABS: CROSS MATCH (PRBC) COMPATIBLE (COMPATIBLE)
--- NOTE | 2020-03-26 11:44 | PCM.NOTE ---
Date and Time: 03/26/20 1140 Subjective Assessment: patient had tachycardia and felt lightheaded with therapy, heart rate went up to 150 bpm when standing to do simple exercises, he denies any bleeding. remains weak Objective Exam General Appearance: no apparent distress Neurologic Exam: alert, oriented x 3 Wound Assessment: Skin/Wound Assessment Wound/Incision Assessment Start: 03/20/20 18: 34 Text: Status: Active Freq: Q8H Protocol: Document 03/26/20 04:00 BB (Rec: 03/26/20 04:55 BB [id number]) Wound/Incision Assessment Left Lower Arm Wound Assessment Shift Assessment Wound Type Skin Tear Wound Stage Non Pressure Wound Dressing Status Dry & Intact Drainage Amount None General Appearance Well Approximated Primary Dressing Non-Adherent Gauze Pads Comment Stockinette holding dressing in place at this time Wound Photo Photo Taken No Respiratory Exam: normal breath sounds, lungs clear, No respiratory distress Cardiovascular Exam: regular rate/rhythm, normal heart sounds Gastrointestinal/Abdomen Exam: soft, No tenderness, No mass Extremity Exam: normal inspection, normal range of motion OBJECTIVE DATA Vital Signs: Vital Signs - 24 hr Temp Pulse Resp BP Pulse Ox 03/26/20 10:17 92 L 03/26/20 08:00 98.8 F 73 18 119/57 93 L 03/26/20 04:00 98.8 F 78 18 138/64 95 03/26/20 00:00 99.1 F 77 20 94/57 93 L 03/25/20 19:49 98.8 F 80 18 120/65 99 03/25/20 19:25 98 03/25/20 16:00 98.3 F 83 16 103/59 96 03/25/20 12:00 98.7 F 98 H 20 101/64 97 Pain Assessment - Last Documented Pain Intensity 0 Pain Scale Used 0-10 Pain Scale Intake and Output: Intake & Output 03/23/20 03/24/20 03/25/20 03/26/20 11:59 11:59 11:59 11:59 Intake Total 3455 3127 2858 2687 Output Total 1900 1750 3250 3000 Balance 9738 3230 -115 -350 Weight 104.1 kg 104.9 kg 106 kg 105.8 kg Lab Results: Lab Results-Last 24 Hours 03/26/20 03/26/20 03/26/20 Range/Units 04:58 04:58 04:58 WBC 6.0 (4.0-10.5) K/mm3 RBC 2.09 L (4.1-5.6) M/mm3 Hgb 7.4 L (12.5-18.0) gm/dl Hct 23.9 L (42-50) % MCV 114.4 H (78-100) fl MCH 35.4 H (26-32) pg MCHC 31.0 L (32-36) g/dl RDW 13.5 (11.5-14.0) % Plt Count 211 (150-450) K/mm3 MPV 9.6 (7.5-11.0) fl Gran % 61.9 (36.0-66.0) % Eos # (Auto) 0.12 (0-0.5) Absolute Lymphs (auto) 1.60 (1.0-4.6) Absolute Monos (auto) 0.47 (0.0-1.3) Lymphocytes % 26.9 (24.0-44.0) % Monocytes % 7.9 (0.0-12.0) % Eosinophils % 2.0 (0.00-5.0) % Basophils % 1.3 (0.0-0.4) % Absolute Granulocytes 3.68 (1.4-6.9) Basophils # 0.08 (0-0.4) PT 12.1 (8.83-12.87) SECONDS INR 1.07 (0.8-3.0) Sodium 138 (137-145) mmol/L Potassium 4.0 (3.5-5.1) mmol/L Chloride 109 H (98-107) mmol/L Carbon Dioxide 23 (22-30) mmol/L Anion Gap 9.9 (5-15) MEQ/L BUN 13 (9-20) mg/dL Creatinine 1.35 H (0.66-1.25) mg/dL Estimated GFR 56.0 ML/MIN Glucose 110 H (74-106) mg/dL Calcium 8.8 (8.4-10.2) mg/dL Magnesium 1.6 (1.6-2.3) mg/dL Total Bilirubin 0.20 (0.2-1.3) mg/dL AST 49 (17-59) U/L ALT 28 (0-50) U/L Alkaline Phosphatase 80 (38-126) U/L Serum Total Protein 6.2 L (6.3-8.2) g/dL Albumin 2.8 L (3.5-5.0) g/dL ABO Group Rh Factor Antibody Screen (NEGATIVE) Crossmatch (COMPATIBLE) 03/26/20 03/26/20 Range/Units 04:58 04:58 WBC (4.0-10.5) K/mm3 RBC (4.1-5.6) M/mm3 Hgb (12.5-18.0) gm/dl Hct (42-50) % MCV (78-100) fl MCH (26-32) pg MCHC (32-36) g/dl RDW (11.5-14.0) % Plt Count (150-450) K/mm3 MPV (7.5-11.0) fl Gran % (36.0-66.0) % Eos # (Auto) (0-0.5) Absolute Lymphs (auto) (1.0-4.6) Absolute Monos (auto) (0.0-1.3) Lymphocytes % (24.0-44.0) % Monocytes % (0.0-12.0) % Eosinophils % (0.00-5.0) % Basophils % (0.0-0.4) % Absolute Granulocytes (1.4-6.9) Basophils # (0-0.4) PT (8.83-12.87) SECONDS INR (0.8-3.0) Sodium (137-145) mmol/L Potassium (3.5-5.1) mmol/L Chloride (98-107) mmol/L Carbon Dioxide (22-30) mmol/L Anion Gap (5-15) MEQ/L BUN (9-20) mg/dL Creatinine (0.66-1.25) mg/dL Estimated GFR ML/MIN Glucose (74-106) mg/dL Calcium (8.4-10.2) mg/dL Magnesium (1.6-2.3) mg/dL Total Bilirubin (0.2-1.3) mg/dL AST (17-59) U/L ALT (0-50) U/L Alkaline Phosphatase (38-126) U/L Serum Total Protein (6.3-8.2) g/dL Albumin (3.5-5.0) g/dL ABO Group A Rh Factor POSITIVE Antibody Screen NEGATIVE (NEGATIVE) Crossmatch COMPATIBLE COMPATIBLE (COMPATIBLE) Multi-Disciplinary Progress Notes: Multi-Disciplinary Progress Notes 03/26/20 09:04 Case Management Note by Gema Eckert S/W [facility]- THEY WILL CHECK WITH [facility] TODAY TO BE SURE THEY CAN ACCEPT PATIENT. SHE ALSO STATED THEY SHOULD BE ABLE TO ARRANGE FOR VAN TRANSFER Initialized on 03/26/20 09:04 - END OF NOTE 03/25/20 12:17 Case Management Note by Gema Eckert S/W DAUGHTER DHARA- SHE HAS WENT OVER THE FINANCIALS WITH [facility] AND WOULD LIKE TO PROCEED. Initialized on 03/25/20 12:17 - END OF NOTE 03/25/20 12:07 Case Management Note by Gema Eckert REFERRAL PACKET SENT TO [facility] AT THIS TIME Initialized on 03/25/20 12:07 - END OF NOTE 03/25/20 11:58 Case Management Note by Gema Eckert S/W YENIFER- THEY HAVE S/W DAUGHTER ABOUT FINANCIALS. THEY WILL REQUIRE A COVID TEST. ADMIN NOTIFIED AND APPROVED TEST. NEG PRESSURE TURNED ON IN ROOM AT THIS TIME. Initialized on 03/25/20 11:58 - END OF NOTE 03/25/20 11:48 Physical Therapy Note by Willa Waldrop PT. REPORTS HE IS FEELING BETTER. REPORTS GENERAL SORENESS IN LES AFTER MULTIPLE FALLS. STATES HE FELL FORWARD ONTO KNEES WHILE NEGOTIATING STEPS AT HOME. PT. IN BED UPON P.T. ARRIVAL TO ROOM. SUPINE TO SIT PERFORMED W/ MIN- MOD ASSIST X 1. SIT TO STAND MIN ASSIST X 2. PT. AMBULATED ~ 60' W/ ROLLER WALKER AND MIN ASSIST X 2. NOTED SHORT STRIDE LENGTH AND TREMORING W/ LE ADVANCEMENT. HAD TO HAVE MOD ASSIST X1 TO REGAIN BALANCE D/T R LE TREMOR/ BUCKLING. GAIT PATTERN SEEMED TO IMPROVE ON SECOND HALF OF WALK. FEEL PT. WILL NEED TO CONT. REHAB IN SNF D/T LENGTH OF TIME THAT WILL BE NEEDED TO MEET GOALS TO MAXIMIZE FUNCTIONAL INDEPENDENCE. WILL CONT. PT DURING STAY TO PROGRESS INDEPNENDENCE W/ FUNCTIONAL MOBILITY, INCREASE LE STRENGTH, AND DYNAMIC BALANCE, WELL GAIT TOLERANCE AND STABILITY. WILLA WALDROP PT Initialized on 03/25/20 11:48 - END OF NOTE Assessment/Plan (1) Duodenal ulcer Current Visit: Yes Status: Acute (2) Alcoholic cirrhosis of liver Current Visit: Yes Status: Acute Code(s): K70.30 - ALCOHOLIC CIRRHOSIS OF LIVER WITHOUT ASCITES (3) Diverticulosis large intestine w/o perforation or abscess w/o bleeding Current Visit: Yes Status: Acute Code(s): K57.30 - DVRTCLOS OF LG INT W/O PERFORATION OR ABSCESS W/O BLEEDING (4) Tachycardia Current Visit: Yes Status: Acute Assessment & Plan: add propranolol due to cirrhosis and likely portal hypertension Code(s): R00.0 - TACHYCARDIA, UNSPECIFIED (5) Anemia Current Visit: Yes Status: Acute Qualifiers: Anemia type: unspecified type Qualified Code(s): D64.9 - Anemia, unspecified Assessment & Plan: transfuse 2 units Code(s): D64.9 - ANEMIA, UNSPECIFIED
[2020-03-26 19:18] LABS: Hematocrit 34.2 % (42-50); Hemoglobin 11.3 gm/dl (12.5-18.0)
[2020-03-27 05:07] LABS: ALBUMIN 2.9 g/dL (3.5-5.0); ALKALINE PHOSPHATASE 87 U/L (38-126); ANION GAP 9.7 MEQ/L (5-15); BLOOD UREA NITROGEN 13 mg/dL (9-20); CHLORIDE 109 mmol/L (98-107); Calcium 8.7 mg/dL (8.4-10.2); Carbon Dioxide 22 mmol/L (22-30); Creatinine 1 1.27 mg/dL (0.66-1.25); Glucose 99 mg/dL (74-106); Potassium 3.8 mmol/L (3.5-5.1); SGOT/AST 52 U/L (17-59); SGPT/ALT 29 U/L (0-50); SODIUM 137 mmol/L (137-145); Total Protein 6.4 g/dL (6.3-8.2)
[2020-03-27 05:13] LABS: Absolute Neutrophil Ct (ANC) 4.82 (1.4-6.9); BASOPHIL % 0.8 % (0.0-0.4); Basophil (Absolute #) 0.06 (0-0.4); Eosinophil % 1.4 % (0.00-5.0); Hematocrit 31.1 % (42-50); Hemoglobin 9.9 gm/dl (12.5-18.0); Lymphocyte (Absolute #) 1.51 (1.0-4.6); Lymphocytes % 21.4 % (24.0-44.0); Mean Cell Volume 105.8 fl (78-100); Mean Corpuscular Hemoglobin 33.7 pg (26-32); Mean Corpuscular Hgb Concent. 31.8 g/dl (32-36); Mean Platelet Volume 8.9 fl (7.5-11.0); Monocyte (Absolute #) 0.57 (0.0-1.3); Monocytes % 8.1 % (0.0-12.0); Neutrophil % 68.3 % (36.0-66.0); Platelet Count 191 K/mm3 (150-450); Red Blood Count 2.94 M/mm3 (4.1-5.6); Red Cell Distribution Width 16.5 % (11.5-14.0); White Blood Count 7.1 K/mm3 (4.0-10.5)
--- NOTE | 2020-03-27 08:54 | PCM.NOTE ---
Date and Time: 03/27/20 0852 Subjective Assessment: patient is doing well at this time, tolerating getting up and denies any chest pain or palpitations. received blood transfusion. only complains of weakness Objective Exam General Appearance: no apparent distress Neurologic Exam: alert, oriented x 3, cooperative Wound Assessment: Skin/Wound Assessment Wound/Incision Assessment Start: 03/20/20 18: 34 Text: Status: Active Freq: Q8H Protocol: Document 03/27/20 04:00 ST (Rec: 03/27/20 05:30 ST [id number]) Wound/Incision Assessment Left Lower Arm Wound Assessment Shift Assessment Wound Type Skin Tear Wound Stage Non Pressure Wound Dressing Status Dry & Intact Drainage Amount None General Appearance Well Approximated Primary Dressing Non-Adherent Gauze Pads Comment Stockinette holding dressing in place at this time Wound Photo Photo Taken No Respiratory Exam: normal breath sounds, lungs clear, No respiratory distress Cardiovascular Exam: regular rate/rhythm, normal heart sounds Gastrointestinal/Abdomen Exam: soft, No tenderness, No mass OBJECTIVE DATA Vital Signs: Vital Signs - 24 hr Temp Pulse Resp BP Pulse Ox 03/27/20 08:00 98.5 F 77 16 131/70 94 L 03/27/20 06:58 95 03/27/20 04:15 98.8 F 76 16 142/60 95 03/26/20 23:56 98.9 F 62 20 144/88 94 L 03/26/20 19:49 98.3 F 63 18 133/67 95 03/26/20 19:42 96 03/26/20 15:49 97.4 F 62 15 138/64 96 03/26/20 12:00 97.9 F 65 16 125/66 97 03/26/20 10:17 92 L Pain Assessment - Last Documented Pain Intensity 0 Pain Scale Used 0-10 Pain Scale Intake and Output: Intake & Output 03/24/20 03/25/20 03/26/20 03/27/20 11:59 11:59 11:59 11:59 Intake Total 3123 5511 1437 6825 Output Total 6971 3250 8268 2951 Balance 1304 -899 -051 215 Weight 104.9 kg 106 kg 105.8 kg 107.6 kg Lab Results: Lab Results-Last 24 Hours 03/26/20 03/26/20 03/26/20 Range/Units 04:58 04:58 19:17 WBC (4.0-10.5) K/mm3 RBC (4.1-5.6) M/mm3 Hgb 11.3 L D (12.5-18.0) gm/dl Hct 34.2 L (42-50) % MCV (78-100) fl MCH (26-32) pg MCHC (32-36) g/dl RDW (11.5-14.0) % Plt Count (150-450) K/mm3 MPV (7.5-11.0) fl Gran % (36.0-66.0) % Eos # (Auto) (0-0.5) Absolute Lymphs (auto) (1.0-4.6) Absolute Monos (auto) (0.0-1.3) Lymphocytes % (24.0-44.0) % Monocytes % (0.0-12.0) % Eosinophils % (0.00-5.0) % Basophils % (0.0-0.4) % Absolute Granulocytes (1.4-6.9) Basophils # (0-0.4) Sodium (137-145) mmol/L Potassium (3.5-5.1) mmol/L Chloride (98-107) mmol/L Carbon Dioxide (22-30) mmol/L Anion Gap (5-15) MEQ/L BUN (9-20) mg/dL Creatinine (0.66-1.25) mg/dL Estimated GFR ML/MIN Glucose (74-106) mg/dL Calcium (8.4-10.2) mg/dL Total Bilirubin (0.2-1.3) mg/dL AST (17-59) U/L ALT (0-50) U/L Alkaline Phosphatase (38-126) U/L Serum Total Protein (6.3-8.2) g/dL Albumin (3.5-5.0) g/dL ABO Group A Rh Factor POSITIVE Antibody Screen NEGATIVE (NEGATIVE) Crossmatch COMPATIBLE COMPATIBLE (COMPATIBLE) 03/27/20 03/27/20 Range/Units 04:35 04:35 WBC 7.1 (4.0-10.5) K/mm3 RBC 2.94 L (4.1-5.6) M/mm3 Hgb 9.9 L (12.5-18.0) gm/dl Hct 31.1 L (42-50) % MCV 105.8 H D (78-100) fl MCH 33.7 H (26-32) pg MCHC 31.8 L (32-36) g/dl RDW 16.5 H (11.5-14.0) % Plt Count 191 (150-450) K/mm3 MPV 8.9 (7.5-11.0) fl Gran % 68.3 H (36.0-66.0) % Eos # (Auto) 0.10 (0-0.5) Absolute Lymphs (auto) 1.51 (1.0-4.6) Absolute Monos (auto) 0.57 (0.0-1.3) Lymphocytes % 21.4 L (24.0-44.0) % Monocytes % 8.1 (0.0-12.0) % Eosinophils % 1.4 (0.00-5.0) % Basophils % 0.8 (0.0-0.4) % Absolute Granulocytes 4.82 (1.4-6.9) Basophils # 0.06 (0-0.4) Sodium 137 (137-145) mmol/L Potassium 3.8 (3.5-5.1) mmol/L Chloride 109 H (98-107) mmol/L Carbon Dioxide 22 (22-30) mmol/L Anion Gap 9.7 (5-15) MEQ/L BUN 13 (9-20) mg/dL Creatinine 1.27 H (0.66-1.25) mg/dL Estimated GFR > 60.0 ML/MIN Glucose 99 (74-106) mg/dL Calcium 8.7 (8.4-10.2) mg/dL Total Bilirubin 0.40 (0.2-1.3) mg/dL AST 52 (17-59) U/L ALT 29 (0-50) U/L Alkaline Phosphatase 87 (38-126) U/L Serum Total Protein 6.4 (6.3-8.2) g/dL Albumin 2.9 L (3.5-5.0) g/dL ABO Group Rh Factor Antibody Screen (NEGATIVE) Crossmatch (COMPATIBLE) Multi-Disciplinary Progress Notes: Multi-Disciplinary Progress Notes 03/26/20 15:07 Physical Therapy Note by Willa Waldrop P.T. HELD THIS DATE PT. IS RECEIVING BLOOD TRANSFUSION. PT. HAD ISSUES W/ ELEVATED HR DURING EXERCISE YESTERDAY PM (150 BPM+) W/ GAIT/TRANSFERS. NSG MENTIONED TODAY THAT MAY HAVE BEEN RELATED TO LOW HGB. WILLA WALDROP ,PT Initialized on 03/26/20 15:07 - END OF NOTE 03/26/20 09:04 Case Management Note by Gema Eckert S/W [facility]ER- THEY WILL CHECK WITH [facility] TODAY TO BE SURE THEY CAN ACCEPT PATIENT. SHE ALSO STATED THEY SHOULD BE ABLE TO ARRANGE FOR VAN TRANSFER Initialized on 03/26/20 09:04 - END OF NOTE Assessment/Plan (1) Duodenal ulcer Current Visit: Yes Status: Acute Assessment & Plan: h/h stable, no evidence of bleeding. continue PPI therapy (2) Alcoholic cirrhosis of liver Current Visit: Yes Status: Acute Assessment & Plan: add propranolol Code(s): K70.30 - ALCOHOLIC CIRRHOSIS OF LIVER WITHOUT ASCITES (3) Diverticulosis large intestine w/o perforation or abscess w/o bleeding Current Visit: Yes Status: Acute Code(s): K57.30 - DVRTCLOS OF LG INT W/O PERFORATION OR ABSCESS W/O BLEEDING (4) Tachycardia Current Visit: Yes Status: Acute Code(s): R00.0 - TACHYCARDIA, UNSPECIFIED (5) Anemia Current Visit: Yes Status: Acute Qualifiers: Anemia type: unspecified type Qualified Code(s): D64.9 - Anemia, unspecified Code(s): D64.9 - ANEMIA, UNSPECIFIED (6) Weakness Current Visit: Yes Status: Acute Assessment & Plan: plan to send to [facility] when bed ready Code(s): R53.1 - WEAKNESS
[2020-03-27] MEDS: Inderal 20 MG PO SCH ×2 (09:02→14:58)
[2020-03-27] MEDS: ROCEPHIN 1 Gm-D5w 50 ml Bag** 1 G/50 ML IVPB IV SCH (09:02)
[2020-03-27] MEDS: LASIX 20 MG PO SCH (09:03)
[2020-03-27] MEDS: Keppra 250 MG PO SCH (09:03)
[2020-03-27] MEDS: Acidophilus TABLET PO SCH (09:03)
[2020-03-27] MEDS: Protonix 40MG Tablet PO SCH (09:03)
[2020-03-27] MEDS: Vitamin B-6 (Pyridoxine) 100 MG PO SCH (09:04)
[2020-03-27] MEDS: VITAMIN B-1 100 MG PO SCH (09:04)
--- NOTE | 2020-03-27 13:08 | PCM.DS ---
Discharge Summary Date of Admission: 03/20/20 15:53 Admitting Physician: ANAHI ALCANTAR Consults: Consults on Case 03/20/20 16:18 Consult Surgery ROUTINE 03/20/20 16:59 Consult Nephrology ROUTINE Primary Care Provider: NELY FIELDS MD Allergies Allergies No Known Drug Allergies Allergy (Verified 07/14/18 06:04) Hospital Summary - Hospital Course Hospital Course: patient was admitted with chronic alcoholism, inability to care for himself and found to have duodenal ulcer. he required transfusion, he is stable now but very weak and felt unable to care for himself. he is transferring to [facility] for rehab. he was on ativan for alcohol detox and currently doing well, tolerating po intake, no vomiting or bleeding etc. - Vitals & Intake/Output Vital Signs: Vital Signs Temperature 98.5 F 03/27/20 12:00 Pulse Rate 58 L 03/27/20 12:00 Respiratory Rate 17 03/27/20 12:00 Blood Pressure 154/70 03/27/20 12:00 O2 Sat by Pulse Oximetry 97 03/27/20 12:00 Intake & Output: Intake & Output 03/25/20 03/26/20 03/27/20 03/28/20 11:59 11:59 11:59 11:59 Intake Total 2858 2687 3869 240 Output Total 3250 3000 2950 Balance -392 -313 919 240 Weight 106 kg 105.8 kg 107.6 kg - Lab Result Diagrams: 03/27/20 04:35 03/27/20 04:35 Lab Results-Last 24 Hrs: Lab Results-Last 24 Hours 03/25/20 03/26/20 03/27/20 Range/Units 13:39 19:17 04:35 WBC 7.1 (4.0-10.5) K/mm3 RBC 2.94 L (4.1-5.6) M/mm3 Hgb 11.3 L D 9.9 L (12.5-18.0) gm/dl Hct 34.2 L 31.1 L (42-50) % MCV 105.8 H D (78-100) fl MCH 33.7 H (26-32) pg MCHC 31.8 L (32-36) g/dl RDW 16.5 H (11.5-14.0) % Plt Count 191 (150-450) K/mm3 MPV 8.9 (7.5-11.0) fl Gran % 68.3 H (36.0-66.0) % Eos # (Auto) 0.10 (0-0.5) Absolute Lymphs (auto) 1.51 (1.0-4.6) Absolute Monos (auto) 0.57 (0.0-1.3) Lymphocytes % 21.4 L (24.0-44.0) % Monocytes % 8.1 (0.0-12.0) % Eosinophils % 1.4 (0.00-5.0) % Basophils % 0.8 (0.0-0.4) % Absolute Granulocytes 4.82 (1.4-6.9) Basophils # 0.06 (0-0.4) Sodium (137-145) mmol/L Potassium (3.5-5.1) mmol/L Chloride (98-107) mmol/L Carbon Dioxide (22-30) mmol/L Anion Gap (5-15) MEQ/L BUN (9-20) mg/dL Creatinine (0.66-1.25) mg/dL Estimated GFR ML/MIN Glucose (74-106) mg/dL Calcium (8.4-10.2) mg/dL Total Bilirubin (0.2-1.3) mg/dL AST (17-59) U/L ALT (0-50) U/L Alkaline Phosphatase (38-126) U/L Serum Total Protein (6.3-8.2) g/dL Albumin (3.5-5.0) g/dL COVID-19 (SARAH) Not Detected (Not Detected) SARS-CoV-2 Source Not Given 03/27/20 Range/Units 04:35 WBC (4.0-10.5) K/mm3 RBC (4.1-5.6) M/mm3 Hgb (12.5-18.0) gm/dl Hct (42-50) % MCV (78-100) fl MCH (26-32) pg MCHC (32-36) g/dl RDW (11.5-14.0) % Plt Count (150-450) K/mm3 MPV (7.5-11.0) fl Gran % (36.0-66.0) % Eos # (Auto) (0-0.5) Absolute Lymphs (auto) (1.0-4.6) Absolute Monos (auto) (0.0-1.3) Lymphocytes % (24.0-44.0) % Monocytes % (0.0-12.0) % Eosinophils % (0.00-5.0) % Basophils % (0.0-0.4) % Absolute Granulocytes (1.4-6.9) Basophils # (0-0.4) Sodium 137 (137-145) mmol/L Potassium 3.8 (3.5-5.1) mmol/L Chloride 109 H (98-107) mmol/L Carbon Dioxide 22 (22-30) mmol/L Anion Gap 9.7 (5-15) MEQ/L BUN 13 (9-20) mg/dL Creatinine 1.27 H (0.66-1.25) mg/dL Estimated GFR > 60.0 ML/MIN Glucose 99 (74-106) mg/dL Calcium 8.7 (8.4-10.2) mg/dL Total Bilirubin 0.40 (0.2-1.3) mg/dL AST 52 (17-59) U/L ALT 29 (0-50) U/L Alkaline Phosphatase 87 (38-126) U/L Serum Total Protein 6.4 (6.3-8.2) g/dL Albumin 2.9 L (3.5-5.0) g/dL COVID-19 (SARAH) (Not Detected) SARS-CoV-2 Source Micro Results-Entire Visit: Microbiology 03/21/20 10:30 Urine Culture - Final Urine, Indwelling Catheter Escherichia Coli 03/20/20 Unknown Urine Culture - Final Urine, Void Escherichia Coli - Procedures and Test Procedures and Tests throughout Hospitalization: Therapy Orders & Screens 03/20/20 16:18 EKG REPEAT IN AM Comment: 03/20/20 16:59 PT Eval & Treat ( Order) ROUTINE Reason for Eval:: weakness, cirrhosis, anemia Diagnosis: Weakness 03/20/20 17:09 OT Screen per Nursing Assess ONCE Comment: Protocol Order Physician Instructions: Greater than 3 points order OT Admission Screening Reason For Exam: Triggered on Admission Diagnosis: Weakness Open Wound/Cellutlitis/Pressure Ulcers: No Acute Fx/ORIF/Change in wt bearing status: No Severe MUSCULOSKELETAL pain: Yes: Back and neck pain ADL Dysfunction: Yes Acute CVA w/Hemiparesis/Hemiplegia: No Decreased Functional Mobility/Strength: No Sprain/Strain: No Acute Post-op Mobility Dysfunction: No Total Points: 8 PT Screen per Nursing Assess ONCE Comment: Protocol Order Physician Instructions: Greater than 3 points order PT Admission Screenin Reason For Exam: Triggered on Admission Diagnosis: Weakness Open Wound/Cellutlitis/Pressure Ulcers: No Acute Fx/ORIF/Change in wt bearing status: No Severe MUSCULOSKELETAL pain: Yes: Back and neck pain ADL Dysfunction: Yes Acute CVA w/Hemiparesis/Hemiplegia: No Decreased Functional Mobility/Strength: No Sprain/Strain: No Acute Post-op Mobility Dysfunction: No Total Points: 8 Smoking Cessation Education ONCE Comment: Diagnosis: Weakness Smoking Status: Current every day smoker How long have you smoked: 47 Have you smoked in the past 12 months: Yes Approximately how many cigarettes per day: 20 Do you dip or chew tobacco: No 03/23/20 21:08 Oxygen Nasal Cannula 3 lpm Comment: Diagnosis: pre op Discharge Exam General Appearance: no apparent distress Neurologic Exam: alert, oriented x 3, cooperative Respiratory Exam: normal breath sounds, lungs clear, No respiratory distress Cardiovascular Exam: regular rate/rhythm, normal heart sounds Gastrointestinal/Abdomen Exam: soft, No tenderness, No mass Wound Assessment: Skin/Wound Assessment Wound/Incision Assessment Start: 03/20/20 18: 34 Text: Status: Active Freq: Q8H Protocol: Document 03/27/20 12:00 [facility] (Rec: 03/27/20 12:06 [facility] [id number]) Wound/Incision Assessment Left Lower Arm Wound Assessment Shift Assessment Wound Type Skin Tear Wound Stage Non Pressure Wound Dressing Status Dry & Intact Drainage Amount None General Appearance Well Approximated Primary Dressing Non-Adherent Gauze Pads Comment Stockinette holding dressing in place at this time Wound Photo Photo Taken No Final Diagnosis/Problem List - Final Discharge Diagnosis/Problem (1) Alcoholic cirrhosis of liver Current Visit: Yes Status: Acute Code(s): K70.30 - ALCOHOLIC CIRRHOSIS OF LIVER WITHOUT ASCITES (2) Duodenal ulcer Current Visit: Yes Status: Acute (3) Diverticulosis large intestine w/o perforation or abscess w/o bleeding Current Visit: Yes Status: Acute Code(s): K57.30 - DVRTCLOS OF LG INT W/O PERFORATION OR ABSCESS W/O BLEEDING (4) Tachycardia Current Visit: Yes Status: Acute Code(s): R00.0 - TACHYCARDIA, UNSPECIFIED (5) Anemia Current Visit: Yes Status: Acute Code(s): D64.9 - ANEMIA, UNSPECIFIED (6) Weakness Current Visit: Yes Status: Acute Code(s): R53.1 - WEAKNESS - Discharge Disposition: DC TO ANY "OTHER" LONGTERM Condition: Fair Prescriptions: New Propranolol HCl 20 mg [Inderal 20 MG] 10 mg PO TID #90 tablet PANTOPRAZOLE 40 mg Tablet [Protonix 40MG Tablet] 40 mg PO DAILY #30 tab Thiamine HCl 100 mg [Vitamin B-1 100 mg] 100 mg PO DAILY #30 tablet Continue Atorvastatin Calcium [Lipitor] 40 mg PO QHS Potassium Chloride [K-Dur] 10 meq PO DAILY Furosemide 20 mg [Lasix 20 mg] 20 mg PO DAILY Pyridoxine HCl (Vitamin B6) [B-6] 100 mg PO DAILY Metoprolol Succinate [Toprol Xl] 50 mg PO BID Levetiracetam [Keppra] 750 mg PO BID Clopidogrel Bisulfate 75 mg [PLAVIX 75 MG Tablet] 75 mg PO DAILY Bacillus Coagulans [Probiotic] 1 each PO DAILY Nicotine 21 mg [Nicoderm CQ 21 MG] 1 each TD DAILY
[2020-03-27 16:50] VITALS: BP 169/72; PULSE 60; O2SAT 98
== END 2020-03-27 16:35 ==
LOC: ED 12:16 → OBSVTOIN 15:53 → INTOOBSV 15:53 → MED SURG 15:53
PROVIDERS: ADMIT Internal Medicine; ATTEND Family Medicine
DX: K70.30 Alcoholic cirrhosis of liver without ascites (principal); K26.3 Acute duodenal ulcer without hemorrhage or perforation; K57.30 Diverticulosis of large intestine without perforation or abscess without bleeding; R00.0 Tachycardia, unspecified; D64.9 Anemia, unspecified; K29.60 Other gastritis without bleeding; K63.5 Polyp of colon; M62.82 Rhabdomyolysis; K21.9 Gastro-esophageal reflux disease without esophagitis; K92.2 Gastrointestinal hemorrhage, unspecified; N17.9 Acute kidney failure, unspecified; N39.0 Urinary tract infection, site not specified; Z11.59 Encounter for screening for other viral diseases; M54.9 Dorsalgia, unspecified; M54.2 Cervicalgia; F10.10 Alcohol abuse, uncomplicated; N18.9 Chronic kidney disease, unspecified; E87.5 Hyperkalemia; Z79.01 Long term (current) use of anticoagulants; Z79.899 Other long term (current) drug therapy; Z95.2 Presence of prosthetic heart valve
CPT/HCPCS: 36000; 36415; 36430; 43239; 45384; 70450; 71045; 76770; 80048; 80053; 80307; 81001; 82140; 82150; 82550; 82570; 83605; 83690; 83735; 84156; 84300; 84484; 85014; 85018; 85025; 85027; 85610; 86850; 86900; 86901; 86922; 87077; 87086; 87186; 87205; 93005; 93268; 94760; 94762; 96365; 96374; 96375; 97110; 97161; 97530; 99285; G0378; G0480; P9016; U0003; 88305; 88312; J0696; J1940; J2405; J2704; A9270-GY

== ENCOUNTER 2021-08-22 19:42 | Observation (INO) | payer MEDICARE ==
[2021-08-22] MEDS ORDERED: Adacel Vial IM ONE ×2 (20:08→20:59)
--- NOTE | 2021-08-22 20:11 | ERPHSYRPT ---
- History of Present Illness Source: patient, EMS Exam Limitations: intoxication Patient Subjective Stated Complaint: "I'm not sure. I was watching TV and then the door." Triage Nursing Assessment: patient reported that he was drinking [place] [employer] in his garage. he is unsure if he fell. EMS reported that the patient's son-in-law found the patient laying on the floor. The patient presented alert, oriented, et answering questions appropriately. The patient is a poor historian about his medical history. He reported pain in the left elbow and lower back. Head with 1cm laceration to the occipital scalp with 4cm hematoma. Pupils 3mm brisk bilateral reaction. C-spine non-tender with full ROM. Symmetrical chest expansion. heart tones S1/S2 RRR. Lungs vesicular with adequate airflow. Peripheral pulses +3 bilateral. Lumbar spine tender to palpation without ecchymossi or obvious signs of injury. Skin tear to the left elbow. Bleeding controlled with direct pressure. Physician History: 71 yo wm fell in his garage while drinking [employer]Oh hitting his head w LOC. Pt alert and oriented x3 w good airway upon arrival. He denies C/T/L-spine/hip pain/chest pain/dyspnea. Pt needs a Tdap. Occurred: just prior to arrival Reason for Fall: slipped (Intoxicated) Injuries/Pain Location: head, back Loss of Consciousness: brief (seconds) Quality: aching Severity of Pain-Max: moderate Severity of Pain-Current: mild Modifying Factors: Improves With: nothing Associated Symptoms (Fall): back pain, headache, No abdominal pain, No confus ion, No chest pain, No dizziness, No extremity injury, No lightheadedness, No muscle spasms, No nausea, No neck pain, No ringing in ears, No seizures, No shortness of breath, No slurred speech, No trouble walking, No vomiting, No vision changes Allergies/Adverse Reactions: No Known Drug Allergies Allergy (Verified 08/22/21 19:51) Home Medications: Atorvastatin Calcium [Lipitor] 40 mg PO QHS 07/11/18 [History] Bacillus Coagulans [Probiotic] 1 each PO DAILY 07/11/18 [History] Clopidogrel Bisulfate 75 mg [PLAVIX 75 MG Tablet] 75 mg PO DAILY 07/11/18 [History] Furosemide 20 mg [Lasix 20 mg] 20 mg PO DAILY 07/11/18 [History] Levetiracetam [Keppra] 750 mg PO BID 07/11/18 [History] Metoprolol Succinate [Toprol Xl] 50 mg PO BID 07/11/18 [History] Potassium Chloride [K-Dur] 10 meq PO DAILY 07/11/18 [History] Pyridoxine HCl (Vitamin B6) [B-6] 100 mg PO DAILY 07/11/18 [History] Nicotine 21 mg [Nicoderm CQ 21 MG] 1 each TD DAILY 03/20/20 [History] Hx Tetanus, Diphtheria Vaccination/Date Given: No Hx Influenza Vaccination/Date Given: No Hx Pneumococcal Vaccination/Date Given: No Travel Risk - International Travel Have you traveled outside of the country in past 3 weeks: No - Coronavirus Screening Are you exhibiting any of the following symptoms?: No Close contact with a COVID-19 positive Pt in past 14-21 Days: No - Vaccine Status Have you recieved a Covid-19 vaccination: Yes Line Dec[employer]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 - Review of Systems Constitutional: No Symptoms Eyes: No Symptoms Ears, Nose, & Throat: No Symptoms Respiratory: No Symptoms Cardiac: No Symptoms Abdominal/Gastrointestinal: No Symptoms Genitourinary Symptoms: No Symptoms Skin: No Symptoms Neurological: Headache Psychological: No Symptoms, Alcohol Abuse Endocrine: No Symptoms Hematologic/Lymphatic: No Symptoms Immunological/Allergic: No Symptoms - Past Medical History Pertinent Past Medical History: Yes Neurological History: Seizures ENT History: No Pertinent History Cardiac History: Coronary Artery Disease, High Cholesterol, Hypertension Respiratory History: No Pertinent History Endocrine Medical History: No Pertinent History Musculoskeletal History: No Pertinent History GI Medical History: No Pertinent History History: Other Psycho-Social History: No Pertinent History Male Reproductive Disorders: No Pertinent History Other Medical History: Hx of kidney problems, states last sz was "one to two yrs ago" - Past Surgical History Past Surgical History: Yes Neuro Surgical History: No Pertinent History Cardiac: Cardiac Catheterization Respiratory: No Pertinent History Gastrointestinal: No Pertinent History Genitourinary: No Pertinent History Musculoskeletal: No Pertinent History Male Surgical History: No Pertinent History Other Surgical History: Colonoscopy - Social History Smoking Status: Current every day smoker How long have you smoked: 50 years Exposure to second hand smoke: Yes Drug Use: none Patient Lives Alone: Yes Significant Family History: no pertinent family hx - Nursing Vital Signs Nursing Vital Signs: Initial Vital Signs Temperature 98.7 F 08/22/21 19:43 Pulse Rate 63 08/22/21 19:43 Respiratory Rate 18 08/22/21 19:43 Blood Pressure 112/63 08/22/21 19:43 O2 Sat by Pulse Oximetry 98 08/22/21 19:43 Pain Scale Pain Intensity 2 WNL - Leidy Coma Score Best Eye Response (Sully): (4) open spontaneously Best Verbal Response (Sully): (5) oriented Best Motor Response (Sully): (6) obeys commands Sully Total: 15 - Physical Exam General Appearance: no apparent distress Head Injury: lacerations (L parietal lac) Eye Exam: PERRL/EOMI, eyes nml inspection ENT Exam: airway nml, No clear fluid (ears), No clear fluid (nose) Neck Exam: supple, trachea midline, full range of motion (C-spine nttp) Respiratory/Chest Exam: chest tenderness (L posterior thorax TTP), normal breath sounds, No respiratory distress Cardiovascular Exam: normal heart sounds, regular rate/rhythm, normal peripheral pulses, No murmur Gastrointestinal Exam: soft, normal bowel sounds, No tenderness Back Exam: normal inspection, normal range of motion (No T or L-spine TTP) Extremity Exam: normal inspection, normal range of motion, capillary refill <3 sec, pelvis stable Peripheral Pulses: carotid (R): 2+, carotid (L): 2+ Neurologic Exam: alert, oriented x 3, cooperative, 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 I offered to use local anesthetic, but he still refused.) - Course Nursing assessment & vital signs reviewed: Yes EKG Interpreted by Me: RATE (Sinus carmen/R59/Low voltage/Prolonged QT-QTc) - CT Exams Head CT Interpretation: Tele-radiologist Report (NAD) Cervical Spine CT Interpretation: Tele-radiologist Report (NAD) Chest CT Interpretation: Tele-radiologist Report Abdomen/Pelvis CT Interpretation: Discussed w/radiologist (L anterior-lateral 4th rib fx/L 5-7 rib fx/Cholelithiasis/3cm LLL mass-pulmonary nodules) Ordered Tests: Active Orders 24 hr Category Date Time Status EKG-ER Only STAT Care 08/22/21 20:10 Completed Heart-Healthy Diet Diet 08/23/21 Breakfast Active CERVICAL SPINE WO CONTRAST [CT] Stat Exams 08/22/21 20:07 Taken CHEST WITHOUT CONTRAST [CT] Stat Exams 08/22/21 20:08 Taken HEAD WITHOUT CONTRAST [CT] Stat Exams 08/22/21 20:06 Taken Alcohol [ETHYL ALCOHOL] AM.LAB Lab 08/23/21 04:00 Ordered CBC W DIFF AM.LAB Lab 08/23/21 04:00 Ordered CBC W DIFF Stat Lab 08/22/21 20:10 Results CMP AM.LAB Lab 08/23/21 04:00 Ordered CMP Stat Lab 08/22/21 20:10 Completed ETHYL ALCOHOL Stat Lab 08/22/21 20:11 Completed Pathologist Review Stat Lab 08/22/21 20:10 Results TROPONIN Q3H Lab 08/22/21 20:15 Completed Medication Summary Generic Name Dose Route Start Last Admin Trade Name Freq PRN Reason Stop Dose Admin Sodium Chloride 1,000 mls @ 100 mls/hr 08/22/21 23:45 08/23/21 00:38 Sodium Chloride 0.9% 1000 Ml IV 09/21/21 23:44 100 mls/hr .Q10H LIT Administration Multivitamins/Minerals 10 ml/ 1,000 mls @ 100 mls/hr 08/22/21 23:45 Thiamine HCl 100 mg/ Folic IV 09/21/21 23:44 Acid 1 mg/ Sodium Chloride .Q10H LIT Morphine Sulfate 4 mg 08/22/21 23:35 Morphine Sulfate 4 Mg/Ml Injection IV 08/27/21 23:34 Q4H PRN PRN PAIN Ondansetron HCl 4 mg 08/22/21 23:35 Ondansetron Hcl 4 Mg/2 Ml Vial IV 09/21/21 23:34 Q6H PRN PRN NAUSEA/VOMITING Pantoprazole Sodium 40 mg 08/23/21 10:00 Pantoprazole 40 Mg Vial IV 09/22/21 09:59 Q24H10 LIT Discontinued Medications Generic Name Dose Route Start Last Admin Trade Name Vinh PRN Reason Stop Dose Admin Diphtheria/Tetanus/Acell Pertussis 0.5 ml 08/22/21 20:08 08/22/21 21:00 Tdap --Diph,Pertuss(Acell),Tet Vac/Pf 0.5 Ml Vial IM 08/22/21 20:09 0.5 ml .ONCE ONE Administration Diphtheria/Tetanus/Acell Pertussis Confirm 08/22/21 20:59 Tdap --Diph,Pertuss(Acell),Tet Vac/Pf 0.5 Ml Vial Administered 08/22/21 21:00 Dose 0.5 ml IM .STK-MED ONE Fentanyl Citrate 50 mcg 08/22/21 22:05 08/22/21 22:11 Fentanyl Citrate 100 Mcg/2 Ml* Vial IV 08/22/21 22:06 50 mcg STAT ONE Administration Fentanyl Citrate Confirm 08/22/21 22:10 Fentanyl Citrate 100 Mcg/2 Ml* Vial Administered 08/22/21 22:11 Dose 100 mcg .ROUTE .STK-MED ONE Ondansetron HCl 4 mg 08/22/21 22:05 08/22/21 22:11 Ondansetron Hcl 4 Mg/2 Ml Vial IV 08/22/21 22:06 4 mg STAT ONE Administration Ondansetron HCl Confirm 08/22/21 22:10 Ondansetron Hcl 4 Mg/2 Ml Vial Administered 08/22/21 22:11 Dose 4 mg .ROUTE .STK-MED ONE Lab/Rad Data: Laboratory Result Diagrams 08/22/21 20:10 08/22/21 20:10 Laboratory Results 08/22/21 08/22/21 08/22/21 Range/Units 23:53 20:15 20:11 WBC (4.0-10.5) K/mm3 RBC (4.1-5.6) M/mm3 Hgb (12.5-18.0) gm/dl Hct (42-50) % MCV (78-100) fl MCH (26-32) pg MCHC (32-36) g/dl RDW (11.5-14.0) % Plt Count (150-450) K/mm3 MPV (7.5-11.0) fl Gran % (36.0-66.0) % Eos # (Auto) (0-0.5) Absolute Lymphs (auto) (1.0-4.6) Absolute Monos (auto) (0.0-1.3) Lymphocytes % (24.0-44.0) % Monocytes % (0.0-12.0) % Eosinophils % (0.00-5.0) % Basophils % (0.0-0.4) % Absolute Granulocytes (1.4-6.9) Basophils # (0-0.4) Smear Path Review Sodium (137-145) mmol/L Potassium (3.5-5.1) mmol/L Chloride (98-107) mmol/L Carbon Dioxide (22-30) mmol/L Anion Gap (5-15) MEQ/L BUN (9-20) mg/dL Creatinine (0.66-1.25) mg/dL Estimated GFR ML/MIN Glucose (74-106) mg/dL Calcium (8.4-10.2) mg/dL Total Bilirubin (0.2-1.3) mg/dL AST (17-59) U/L ALT (0-50) U/L Alkaline Phosphatase (38-126) U/L Troponin I < 0.012 (0.000-0.034) ng/mL Serum Total Protein (6.3-8.2) g/dL Albumin (3.5-5.0) g/dL Ethyl Alcohol 127 H (0-10) mg/dL SARS-CoV-2 (PCR) NEGATIVE (NEGATIVE) 08/22/21 08/22/21 Range/Units 20:10 20:10 WBC 9.5 (4.0-10.5) K/mm3 RBC 3.27 L (4.1-5.6) M/mm3 Hgb 11.4 L (12.5-18.0) gm/dl Hct 35.7 L (42-50) % MCV 109.2 H (78-100) fl MCH 34.9 H (26-32) pg MCHC 31.9 L (32-36) g/dl RDW 13.1 (11.5-14.0) % Plt Count 207 (150-450) K/mm3 MPV 8.6 (7.5-11.0) fl Gran % 64.4 (36.0-66.0) % Eos # (Auto) 0.07 (0-0.5) Absolute Lymphs (auto) 2.68 (1.0-4.6) Absolute Monos (auto) 0.60 (0.0-1.3) Lymphocytes % 28.2 (24.0-44.0) % Monocytes % 6.3 (0.0-12.0) % Eosinophils % 0.7 (0.00-5.0) % Basophils % 0.4 (0.0-0.4) % Absolute Granulocytes 6.10 (1.4-6.9) Basophils # 0.04 (0-0.4) Smear Path Review Pending Sodium 136 L (137-145) mmol/L Potassium 5.2 H (3.5-5.1) mmol/L Chloride 105 (98-107) mmol/L Carbon Dioxide 24 (22-30) mmol/L Anion Gap 11.9 (5-15) MEQ/L BUN 13 (9-20) mg/dL Creatinine 2.18 H (0.66-1.25) mg/dL Estimated GFR 32.0 ML/MIN Glucose 103 (74-106) mg/dL Calcium 8.8 (8.4-10.2) mg/dL Total Bilirubin 0.20 (0.2-1.3) mg/dL AST 36 (17-59) U/L ALT 15 (0-50) U/L Alkaline Phosphatase 103 (38-126) U/L Troponin I (0.000-0.034) ng/mL Serum Total Protein 6.8 (6.3-8.2) g/dL Albumin 3.3 L (3.5-5.0) g/dL Ethyl Alcohol (0-10) mg/dL SARS-CoV-2 (PCR) (NEGATIVE) - Progress Progress: improved Progress Note: 08/22/21 23:[address] Smith 50umg IV Fentanyl/4mg IV Zofran 08/22/21 23:55 Pt refused 2nd troponin and further labs in ER Pt originally refused hospital stay but agreed when he could not find a ride. Discussed with : Leonora Counseled pt/family regarding: lab results, diagnosis, need for follow-up, rad results - Departure Departure Disposition: Observation Clinical Impression: Fracture, ribs, Alcohol abuse, Head injury, Scalp laceration Condition: Stable Critical Care Time: No
[2021-08-22 20:34] LABS: BASOPHIL % 0.4 % (0.0-0.4); Basophil (Absolute #) 0.04 (0-0.4); Eosinophil % 0.7 % (0.00-5.0); Eosinophil (Absolute #) 0.07 (0-0.5); Hematocrit 35.7 % (42-50); Hemoglobin 11.4 gm/dl (12.5-18.0); Lymphocyte (Absolute #) 2.68 (1.0-4.6); Lymphocytes % 28.2 % (24.0-44.0); Mean Cell Volume 109.2 fl (78-100); Mean Corpuscular Hemoglobin 34.9 pg (26-32); Mean Corpuscular Hgb Concent. 31.9 g/dl (32-36); Mean Platelet Volume 8.6 fl (7.5-11.0); Monocytes % 6.3 % (0.0-12.0); Neutrophil % 64.4 % (36.0-66.0); Platelet Count 207 K/mm3 (150-450); Red Blood Count 3.27 M/mm3 (4.1-5.6); Red Cell Distribution Width 13.1 % (11.5-14.0); White Blood Count 9.5 K/mm3 (4.0-10.5)
[2021-08-22 20:53] LABS: ALBUMIN 3.3 g/dL (3.5-5.0); ANION GAP 11.9 MEQ/L (5-15); BILIRUBIN,TOTAL 0.2 mg/dL (0.2-1.3); Calcium 8.8 mg/dL (8.4-10.2); Creatinine 1 2.18 mg/dL (0.66-1.25); Potassium 5.2 mmol/L (3.5-5.1); Total Protein 6.8 g/dL (6.3-8.2)
[2021-08-22] MEDS ORDERED: SUBLIMAZE 100 MCG/2 ML IV ONE (22:05)
[2021-08-22] MEDS ORDERED: Zofran 4 MG/2 ML VIAL IV ONE (22:05)
[2021-08-22] MEDS ORDERED: Zofran 4 MG/2 ML VIAL ONE (22:10)
[2021-08-22] MEDS ORDERED: SUBLIMAZE 100 MCG/2 ML ONE (22:10)
[2021-08-22] MEDS ORDERED: Zofran 4 MG/2 ML VIAL IV PRN (23:35)
[2021-08-22] MEDS ORDERED: MORPHINE SULFATE 4 MG INJ IV PRN (23:35)
[2021-08-22] MEDS ORDERED: Sodium Chloride 0.9% 1000 ML 1,000 ML IV SCH (23:45)
--- NOTE | 2021-08-23 07:43 | XRAY ---
Indication: Pain and headache following fall. Intoxication. Multiple contiguous axial images obtained through the head without contrast. Comparison: March 20, 2020. There remains grossly stable age-appropriate global atrophy, mild periventricular degenerative micro-ischemia, and old left parietal infarct. No acute intracranial hemorrhage, hydrocephalus, or mass effect. Fourth ventricle is midline. Bony calvarium intact. Tiny left maxillary sinus fluid leveling. Remaining visualized paranasal sinuses and mastoid air cells are clear. Impression: 1. Continue nonacute senile brain with old left parietal infarct. 2. Again incidental left maxillary sinus disease. Comment: Preliminary interpretation made by C. No critical discrepancy.
--- NOTE | 2021-08-23 07:45 | XRAY ---
Indication: Pain following fall. Intoxication. Multiple contiguous axial images obtained through the cervical spine. Sagittal and coronal reformatted images obtained. Comparison: None. Axial images negative for acute fracture, suspicious bony lesions, or spinal canal stenosis. Mild C5-C7 degenerative endplate spurring. Mild atlantoaxial degenerative changes. Sagittal and coronal reformatted images demonstrate normal alignment with minimal multilevel disc space narrowing greatest at C5-C7. No acute compression fracture, subluxation, or jumped facet. Normal appearing craniocervical junction. Visualized noncontrasted soft tissues demonstrates moderate scattered carotid calcifications bilaterally. CT chest reported separately. Impression: 1. Negative acute fracture/subluxation. 2. Multilevel degenerative changes. Comment: Preliminary interpretation made by [facility]. No critical discrepancy.
--- NOTE | 2021-08-23 08:03 | XRAY ---
Indication: Pain following fall. Intoxication. Multiple contiguous axial images obtained through the chest without contrast. Comparison: None. Lungs demonstrates several predominantly bibasilar irregular noncalcified masses, largest measuring 2.5 x 2.8 x 1.2 cm left base. Additional 0.7 x 1.5 cm similar right apical subpleural irregular noncalcified mass. Left mid lung demonstrate small focus of calcified pleural plaquing. Incidental tiny bilateral calcified granulomas, moderate bibasilar fibrosis/scarring, and mild biapical subpleural cystic changes. No pleural effusion or pneumothorax. Heart not enlarged with incidental descending aortic stent graft. Remaining aorta is mildly arteriosclerotic without aneurysm. Small mediastinal calcified nodes. No pathologic mediastinal lymphadenopathy. Bony thorax demonstrates nondisplaced posterior lateral left 4-7 rib fractures. Old left 9 rib and right clavicle fractures. Limited upper abdomen demonstrates tiny gallstone and splenic calcified granulomas. Impression: 1. Left 4-7 rib fractures resumed acute. No hemothorax/pneumothorax. 2. Multiple bilateral noncalcified masses as detailed. Rule out malignancy. Outside comparison studies recommended if available. If not, PET/CT may yield further information. 3. Incidental left midlung calcified pleural plaquing, tiny gallstone, chronic bony findings, and old granulomatous disease. Comment: Preliminary interpretation made by [facility]. No critical discrepancy.
[2021-08-23] MEDS: Vitamins For Infusion 10 ML INJECTION*** 10 ML, THIAMINE 200 MG/2 ML*** 100 MG, FOLNATE... IV SCH ×8 (08:21)
[2021-08-23] MEDS ORDERED: PROTONIX 40 MG IV IV SCH (10:00)
[2021-08-23] MEDS ORDERED: PLAVIX 75 MG Tablet PO SCH (13:00)
[2021-08-23] MEDS ORDERED: Keppra 250 MG PO SCH (13:00)
[2021-08-23] MEDS ORDERED: Lopressor 50 MG PO SCH (13:00)
[2021-08-23] MEDS ORDERED: MAG-OX 400 PO SCH (13:00)
[2021-08-23] MEDS ORDERED: Klor Con 10 MEQ PO SCH (13:00)
[2021-08-23] MEDS ORDERED: LASIX 20 MG PO SCH (13:00)
[2021-08-23] MEDS ORDERED: Zestril 20 MG PO SCH (13:00)
[2021-08-23] MEDS ORDERED: FEOSOL 325 MG PO SCH (20:00)
[2021-08-23] MEDS ORDERED: NON-FORMULARY ITEM (Levetiracetam [Keppra] 750 MG Tablet) PO SCH (22:00)
[2021-08-23] MEDS ORDERED: ZOCOR 20MG PO SCH (22:00)
[2021-08-23] MEDS ORDERED: MAGNESIUM OXIDE 200 MG PO SCH (22:00)
[2021-08-23] MEDS ORDERED: LIPITOR 40MG PO SCH (22:00)
[2021-08-24] MEDS ORDERED: POTASSIUM CHLORIDE 10 MEQ PO SCH (10:00)
[2021-09-08 16:01] VITALS: BP 109/54; PULSE 72; O2SAT 90
--- NOTE | 2021-09-16 09:17 | SSS ---
DISCHARGE DIAGNOSES: 1) FALL. 2) LACERATION OF OCCIPITAL AREA. 3) RIB FRACTURES. 4) ALCOHOLIC. HISTORY: The patient is a 71-year-old white male patient who apparently had fallen at home in the garage. He had been drinking which is usual for him. Apparently, he was found by his son-in-law and he was then brought to the emergency room where the patient was unsure what happened. He did have laceration in occipital area which was repaired in the emergency room. He was also found to have rib fractures. He was felt the need to come into the hospital for observation and management. PAST MEDICAL/SURGICAL HISTORY: The patient's past medical history is again significant for significant alcohol intake on a regular basis. His history otherwise is significant for seizures, coronary artery disease, hyperlipidemia, hypertension. HOME MEDICATIONS: Atorvastatin 40 mg a day. He takes Plavix 75 mg a day, Lasix 20 mg a day, Keppra 750 mg b.i.d., metoprolol extended release 50 mg twice a day, potassium 10 mEq daily. He takes vitamin B6 100 mg daily and he is on nicotine patch at 21 mg daily. ALLERGIES: NKDA. PHYSICAL EXAMINATION: Revealed a well-nourished, well-developed 71-year-old white male who at present had laceration and hematoma over the occipital area. The patient's vital signs on admission showed his temperature to be 98.7F, pulse 63, respiratory rate 18, blood pressure 112/63 and O2 saturation was 98%. HEENT: Revealed the laceration which was repaired in the emergency room. Pupils equal round reactive to light. Extraocular movements intact. Oropharynx is slightly dry. NECK: Supple without lymphadenopathy, thyromegaly or JVD. CHEST: Clear to auscultation, tender over the area of rib fractures. HEART: Regular rate and rhythm without murmurs, rubs or gallops. ABDOMEN: Soft. No hepatosplenomegaly or masses were felt. EXTREMITIES: Without cyanosis, clubbing or edema. NEUROLOGIC: The patient is currently alert and oriented x3. No focal deficits were noted. LAB DATA AND TESTS: The patient had CT scan of the head which revealed no significant pathology. He had chest CT also which revealed fourth rib fracture and five through seven were fractured as well. He had apparently had 3 cm left lower lobe mass or pulmonary nodules. The patient otherwise had troponin less than 0.012. White count 9.5, hemoglobin 11.4, PLT count was 207,000. His potassium was slightly high at 5.2, sodium of 136, creatinine elevated at 2.18, BUN 13. The patient's liver enzymes appeared to be normal. ASSESSMENT: A patient with multiple rib fractures and scalp laceration which had been repaired in the emergency room and alcoholism. The patient is felt the need to be admitted for observation to be sure that he did not deteriorate neurologically and he continued to breathe without needing any oxygen. He was given Tylenol for his pain as he had head injury and alcohol problems otherwise. He was also noted to have left lower lobe mass which will be followed up as an outpatient by his primary care provider. 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 He was able to breathe okay. He was able to ambulate without difficulty. He was alert and oriented x3 and essentially felt to be ready for discharge home by the morning of 08/23/2021 to follow up with his primary care provider within a week or to come back earlier if he has any troubles with respiratory problems.
== END 2021-08-23 13:57 | disposition home health service (06) ==
LOC: ED 19:42 → MED SURG 08-23 02:20
PROVIDERS: ADMIT Family Medicine; ATTEND Family Medicine
DX: S22.42XA Multiple fractures of ribs, left side, initial encounter for closed fracture (principal); S01.01XA Laceration without foreign body of scalp, initial encounter; M54.9 Dorsalgia, unspecified; R51.9 Headache, unspecified; F10.10 Alcohol abuse, uncomplicated; W19.XXXA Unspecified fall, initial encounter; Z79.899 Other long term (current) drug therapy; Z79.01 Long term (current) use of anticoagulants; I10 Essential (primary) hypertension; E78.00 Pure hypercholesterolemia, unspecified; Z20.822 Contact with and (suspected) exposure to COVID-19
CPT/HCPCS: 12001; 36415; 70450; 71250; 72125; 80053; 84484; 85025; 90471; 93005; 96374; 99284; G0378; G0480; U0003; 80307; 90715; J2270; J2405; J3010; L0625

== ENCOUNTER 2022-05-29 14:08 | Emergency (ER) | payer MEDICARE ==
--- NOTE | 2022-05-29 14:11 | ERPHSYRPT ---
- History of Present Illness Time Seen by Provider: 05/29/22 14:10 Source: patient Exam Limitations: no limitations Physician History: This is a 72-year-old white male patient who lost his balance while working in the garage. He did not experience dizziness. He simply lost his balance. He fell and hit his head and his left anterior knee. There is some bleeding from skin covering the anterior left knee and the scalp and the left occipital region. Patient is on Plavix. He has a history of hypertension, seizure disorders, coronary artery disease and elevated cholesterol. He is a daily smoker of cigarettes. Occurred: just prior to arrival Severity: mild Head Injury Location: occipital (To moderate left side) Method of Injury: fell Loss of Consciousness: no loss of consciousness Associated Symptoms: denies symptoms Allergies/Adverse Reactions: No Known Drug Allergies Allergy (Verified 05/29/22 14:35) Home Medications: Atorvastatin Calcium [Lipitor 40Mg] 40 mg PO HS 08/23/21 [History] Clopidogrel Bisulfate [PLAVIX 75 MG Tablet] 75 mg PO DAILY 08/23/21 [History] Ferrous Sulfate [Iron] 325 mg PO BID 08/23/21 [History] Furosemide 20 mg [Lasix 20 mg] 20 mg PO DAILY 08/23/21 [History] Levetiracetam [Keppra] 750 mg PO BID 08/23/21 [History] Lisinopril 20 mg [Zestril 20 MG] 20 mg PO DAILY 08/23/21 [History] Magnesium Oxide [Mag-Oxide] 400 mg PO BID 08/23/21 [History] Metoprolol Tartrate 50 mg [Lopressor 50 MG] 50 mg PO BID 08/23/21 [History] Potassium Chloride [K-Dur] 10 meq PO DAILY 08/23/21 [History] levETIRAcetam [Keppra] 750 mg PO BID 08/23/21 [History] Hx Tetanus, Diphtheria Vaccination/Date Given: No Hx Influenza Vaccination/Date Given: Yes Hx Pneumococcal Vaccination/Date Given: No Travel Risk - International Travel Have you traveled outside of the country in past 3 weeks: No - Coronavirus Screening Are you exhibiting any of the following symptoms?: No Close contact with a COVID-19 positive Pt in past 14-21 Days: No - Vaccine Status Have you recieved a Covid-19 vaccination: Yes [employer] 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 There is no active bleeding from either site) Psychological: No Symptoms Endocrine: No Symptoms Hematologic/Lymphatic: No Symptoms Immunological/Allergic: No Symptoms All Other Systems: Reviewed and Negative - Past Medical History Pertinent Past Medical History: Yes Neurological History: Seizures ENT History: No Pertinent History Cardiac History: Coronary Artery Disease, High Cholesterol, Hypertension Respiratory History: No Pertinent History Endocrine Medical History: No Pertinent History Musculoskeletal History: No Pertinent History GI Medical History: No Pertinent History History: Other Psycho-Social History: No Pertinent History Male Reproductive Disorders: No Pertinent History Other Medical History: Hx of kidney problems, states last sz was "one to two yrs ago" - Past Surgical History Past Surgical History: Yes Neuro Surgical History: No Pertinent History Cardiac: Cardiac Catheterization Respiratory: No Pertinent History Gastrointestinal: No Pertinent History Genitourinary: No Pertinent History Musculoskeletal: No Pertinent History Male Surgical History: No Pertinent History Other Surgical History: Colonoscopy - Social History Smoking Status: Current every day smoker How long have you smoked: 50 years Exposure to second hand smoke: Yes Drug Use: none Patient Lives Alone: Yes Significant Family History: no pertinent family hx - Nursing Vital Signs Nursing Vital Signs: Initial Vital Signs Temperature 96 F 05/29/22 14:26 Pulse Rate 72 05/29/22 14:26 Respiratory Rate 18 05/29/22 14:26 Blood Pressure 128/72 05/29/22 14:26 O2 Sat by Pulse Oximetry 98 05/29/22 14:26 Pain Scale Pain Intensity 0 - [place] Coma Score Best Eye Response ([place]): (4) open spontaneously Best Verbal Response ([place]): (5) oriented Best Motor Response ([place]): (6) obeys commands [place] Total: 15 - Physical Exam General Appearance: no apparent distress, alert Head Injury: swelling (Scalp left occipital region. There is a hematoma present measuring approximately 2 cm in its greatest dimension. No obvious laceration. No active bleeding), tenderness Eye Exam: bilateral eye: normal inspection, PERRL, EOMI ENT Exam: airway nml, nml ext.inspection, No dental injury Neck Exam: supple, trachea midline, full range of motion, normal alignment, normal inspection Cardiovascular/Respiratory Exam: chest non-tender, no respiratory distress Gastrointestinal/Abdominal Exam: soft, non tender, no distention, no mass, no guarding, no ecchymosis, no organomegaly, no pulsatile mass, normal bowel sounds Rectal Exam: not done Back Exam: normal inspection, normal range of motion, No CVA tenderness, No vertebral tenderness Extremity Exam: normal range of motion, swelling (1-1/2 to 2 cm hematoma of the skin overlying the anterior knee on the left side. 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 Exam: normal hearing, normal speech, PERRL, tongue midline Motor/Sensory Exam: no motor deficit, no sensory deficit Skin Exam: warm, dry Lymphatic Exam: adenopathy SpO2 Interpretation: normal O2 Delivery: Room Air Procedures - Laceration/Wound Repair Left Occipital Time of Procedure: 16:40 Wound Location: Left, head Wound Length (cm): 1.5 (That measurement is for a total of 4 small lacerations of the scalp) Wound's Depth, Shape: superficial, linear Wound Explored: clean (Evaluation was performed to the base in a bloodless field and no foreign bodies noted.) Irrigated: Yes Hibiclens Prep: Yes Wound Repaired With: [place] (4 ness applied.) Sterile Dressing Applied?: Yes - Course Nursing assessment & vital signs reviewed: Yes Ordered Tests: Active Orders 24 hr Category Date Time Status Wound Care STAT Care 05/29/22 16:51 Active HEAD WITHOUT CONTRAST [CT] Stat Exams 05/29/22 14:51 Completed KNEE (3 VIEWS) Stat Exams 05/29/22 14:52 Completed Medication Summary Discontinued Medications Generic Name Dose Route Start Last Admin Trade Name Freq PRN Reason Stop Dose Admin Bacitracin Zinc Confirm 05/29/22 16:42 Bacitracin Packet 1 Each Pckt Administered 05/29/22 16:43 Dose 1 each .ROUTE .STK-MED ONE - Progress Progress: improved Progress Note: 05/29/22 16:55 CT of the head without contrast shows a left side occipital hematoma. There is no cranial fractures. There is no intracranial bleed or acute abnormality. X-ray of left knee shows no acute fracture or dislocation. 05/29/22 16:59 Patient son stated that he will be with his father at home observing him for the next 24 hours. Counseled pt/family regarding: lab results, diagnosis, need for follow-up, rad results - Departure Departure Disposition: Home Clinical Impression: Scalp hematoma, Occipital scalp laceration, Left anterior knee pain Condition: Stable Critical Care Time: No Referrals: [facility] [Primary Care Provider] - Follow up/PCP as directed Additional Instructions: Stop the aspirin and Plavix until Wednesday morning 8 AM on 06/01/2022. Ice pack to the scalp and left knee hematoma areas 3 times a day for the next 48 hours. Keep the pressure dressings in place until the morning of 05/31/2022. On that morning, may take down the dressings on both sites and wash the areas gentl y with soap and water. Blot dry use a hairdryer to dry the sites. Staple removal of the scalp laceration area in 7 to 10 days.
--- NOTE | 2022-05-29 16:27 | XRAY ---
Indication: Contusion following fall. Comparison: None 3 view left knee demonstrates osteopenia, mild medial joint space narrowing, tiny suprapatella spurring, and scattered vascular calcifications including incompletely visualized superficial femoral artery stent graft. No other bony, articular, or soft tissue abnormalities. Impression: Nonacute left knee with chronic features.
--- NOTE | 2022-05-29 16:27 | XRAY ---
Indication: Head injury/abrasion following fall. Multiple contiguous axial images obtained through the head without contrast. 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 No acute intracranial hemorrhage, hydrocephalus, or mass effect. Fourth ventricle is midline. New large left posterior parietal scalp hematoma. Bony calvarium intact. Mild mucosal thickening left maxillary and sphenoid sinuses. Remaining paranasal sinuses and mastoid air cells are clear. Impression: 1. Large left parietal scalp hematoma. No underlying fracture or acute intracranial abnormalities. 2. Again atrophy, degenerative micro-ischemia, and old left parietal infarct. 3. Incidental paranasal sinus disease.
[2022-05-29] MEDS ORDERED: BACIGUENT PACKET ONE (16:42)
[2022-05-29 16:52] VITALS: BP 138/79
[2022-05-29 17:19] VITALS: PULSE 76; O2SAT 96
== END 2022-05-29 17:25 | disposition home or self-care (01) ==
LOC: ED 14:08
DX: S01.01XA Laceration without foreign body of scalp, initial encounter (principal); W18.39XA Other fall on same level, initial encounter; M25.562 Pain in left knee; I10 Essential (primary) hypertension; E78.5 Hyperlipidemia, unspecified; Z72.0 Tobacco use; Z79.02 Long term (current) use of antithrombotics/antiplatelets; Z79.899 Other long term (current) drug therapy
CPT/HCPCS: 12001; 70450; 73562; 99283; A9270-GY